=== PATIENT | male | born 1960 | race Caucasian/White ===

== ENCOUNTER → 2023-06-21 06:20 | Outpatient (REF) | payer OTHER, SELFPAY | LOC: MRI 06:20 | PROVIDERS: ATTENDING PHYSICIAN Podiatrist Foot & Ankle Surgery; FAMILY PHYSICIAN Family Medicine | DX: M72.2 Plantar fascial fibromatosis (principal) | CPT/HCPCS: 73721 ==

== ENCOUNTER → 2024-02-13 08:10 | Outpatient (REF) | payer OTHER, SELFPAY | LOC: HWRCS 08:10 | PROVIDERS: ATTENDING PHYSICIAN Internal Medicine; FAMILY PHYSICIAN Family Medicine | DX: I10 Essential (primary) hypertension (principal); I35.0 Nonrheumatic aortic (valve) stenosis | CPT/HCPCS: 93306 ==

== ENCOUNTER 2024-03-29 06:25 | Day surgery (SDC) | payer OTHER, SELFPAY ==
[2024-03-23 10:17] VITALS: BMI 28.0
[2024-03-23 10:49] LABS: % Basophils 1.3 % (0-2); % Immature Granulocytes 0.4 % (0-0.5); % Lymphocytes 28.8 % (20.5-51.1); % Monocytes 5.6 % (1.7-9.3); % Neutrophils 62.9 % (42.2-75.2); Absolute Basophils 0.1 10^3/uL (0-0.2); Absolute Eosinophils 0.1 10^3/uL (0-0.7); Absolute Monocytes 0.4 10^3/uL (0.1-0.6); Absolute Neutrophils 4.4 10^3/uL (1.4-6.5); Hematocrit 40.4 % (39.0-52.0); Hemoglobin 14.2 g/dL (13.0-18.0); Mean Corp Hgb Conc. 35.1 g/dL (33.0-37.0); Mean Corpuscular Hgb 32.1 pg (27.0-31.0); Mean Corpuscular Volume 91.2 fL (80.0-94.0); Mean Platelet Volume 11.1 fL (7.4-10.4); Nucleated Red Blood Cells % 0 % (-); Platelet Count 246 10^3/uL (130-400); Red Blood Cell Count 4.43 10^6/uL (4.70-6.10); Red Cell Dist. Width 12.2 % (11.5-14.5)
[2024-03-23 10:58] LABS: ALT (SGPT) 26 U/L (0-50); AST (SGOT) 21 U/L (17-59); Albumin 4.2 g/dl (3.5-5.0); Alkaline Phosphatase 86 U/L (38-126); Blood Urea Nitrogen 30 mg/dl (9-20); Calcium 9.3 mg/dl (8.4-10.2); Carbon Dioxide 26 mmol/L (22-30); Chloride 104 mmol/L (98-107); Estimated Creatinine Clearance 48 ml/min; Glucose 243 mg/dl (70-99); Potassium 5.2 mmol/L (3.5-5.1); Sodium 138 mmol/L (135-145); Total Bilirubin 0.9 mg/dl (0.2-1.3); Total Protein 6.8 g/dl (6.3-8.2); eGFR 52.31
--- NOTE | 2024-03-23 12:22 | HPS.HSE ---
Family Physician
-
Family Physician: Juliette Tellez MD
Chief Complaint
-
Severe aortic stenosis.
History of Present Illness
The patient is a 64 year old male presenting today for aortic stenosis. He was first noted to have mild aortic stenosis on an echocardiogram in January 2020. Subsequent echocardiograms in June and December 2022 demonstrated moderate to
severe aortic stenosis. Notably, he has always been fairly active and has continually denied any abnormal symptoms. His most recent echocardiogram in January 2024 demonstrated severe aortic stenosis, with a peak gradient of 95 mmHg and a mean of 55
mmHg. His previous mean gradient was 36 mmHg. Given the progression of his aortic stenosis, SAVR and TAVR will be considered. Before proceeding with potential SAVR or TAVR, he must undergo a right and left cardiac catheterization first. He denies
any current complaints today such as chest pain, shortness of breath, nausea, vomiting, diarrhea, lightheadedness, dizziness, cough, sore throat, or fever.
Medical History
Past Medical History
Past Medical History: Reports Other
Additional Past Medical History:
1. Severe aortic stenosis.
2. Hypertension.
3. Hyperlipidemia.
4. Septal infarct on previous EKGs; no ischemia or infarction noted on stress test 2019.
5. Questionable obstructive sleep apnea, sleep study advised.
6. Chronic kidney disease stage 3.
7. Insulin-dependent diabetes with retinopathy.
8. Colon polyps.
9. Diverticulosis.
10. Nephrolithiasis.
11. Hypothyroidism.
Past Surgical History: Reports Other (Colonoscopy x2. )
Social History
Tobacco: Non-smoker
Alcohol: None
Living: Other (He lives in a 2 story home with his girlfriend. )
Family History
Family History: Early CAD
Allergies / Home Medications
Allergy/Medication List:
Home medications:
1. Aspirin 81 mg p.o. daily.
2. Zetia 10 mg p.o. daily.
3. Novolog sliding scale with meals.
4. Lantus 32 units subcutaneous at bedtime.
5. Levothyroxine 100 mcg p.o. daily.
6. Lisinopril 20 mg p.o. daily.
7. Rosuvastatin 40 mg p.o. daily.
8. Ozempic 1.5 mg subcutaneous on Mondays.
Allergies: No known allergies.
Review of Systems
-
A 12 point ROS was completed and negative except as noted: Yes
Physical Exam
Vital Signs
Blood pressure 127/74. Heart rate 70. Respirations 18. Pulse ox 100% on room air.
Height 5 feet, 7 inches. Weight 80.9 kg. BMI 27.9.
Physical Exam
General: Well Developed, Well Nourished and No Apparent Distress
HEENT: NormoCephalic, Moist mucous membranes, Atraumatic and PERRLA
Respiratory: Clear
Cardiac: Regular Rhythm and Murmur (II/ systolic murmur at right sternal border)
GI: Soft, Non Tender and Non Distended
Musculoskeletal: Normal Gait & Station
Skin: Warm and Dry
Neuro: AO x 3 and Nonfocal/grossly intact
Laboratory Results
-
03/23/24 10:27
03/23/24 10:27
Laboratory Results
Total Bilirubin 0.9 mg/dl (0.2-1.3) 03/23/24 10:27
AST 21 U/L (17-59) 03/23/24 10:27
ALT 26 U/L (0-50) 03/23/24 10:27
Alkaline Phosphatase 86 U/L (38-126) 03/23/24 10:27
EKG 03/23/2024: Sinus rhythm with first degree AV block. Otherwise normal EKG.
Echocardiogram 02/13/2024: Normal left ventricular function with estimated ejection fraction 60 to 65%. Severe aortic stenosis with a peak gradient of 95 mmHg and a mean of 55 mmHg. When compared with the previous report, the severity of aortic
stenosis has increased. Previously moderate to severe with a mean gradient of 36 mmHg.
Nuclear stress test 01/21/2020: Normal perfusion imaging. The ejection fraction is 63%. This is a low risk study.
Impression/Plan
-
IMPRESSION/PLAN:
1. Severe aortic stenosis: The patient will undergo a right and left cardiac catheterization with Dr. Vlad Cuenca on 03/29/2024. The benefits and risks of the procedure have been explained to the patient. The patient understands these risks and
wishes to proceed. He will continue his baby Aspirin daily, up to and including the morning of his procedure. He will hold Ozempic within 1 week of his procedure.
[2024-03-29] VITALS (10 sets, daily range): BP systolic 117–137; BP diastolic 68–83; BMI 27.5
[2024-03-29 07:16] LABS: Glucose - Point of Care 64 mg/dl (70-99)
[2024-03-29] MEDS: LOW STRENGTH ASPIRIN 81 MG PO (07:36)
[2024-03-29 07:50] LABS: Glucose - Point of Care 76 mg/dl (70-99)
--- NOTE | 2024-03-29 09:07 | ITS.CL.CATH ---
Supervisor Metalizing - Catheterization
Cardiac Catheterization
Procedure Report:
CARDIAC CATHETERIZATION REPORT
Date of Procedure: 03/29/2024
Referring: John Coffey M.D., Ph.D.
Indication: Severe aortic valve stenosis.
PROCEDURE:
1. Right heart catheterization.
2. Coronary angiography.
A total of 10 minutes of procedural/moderate sedation was utilized. An independent medical or surgical instrument maker was present to assist with and help manage the patient's level of consciousness and physiologic status.
ACCESS:
1. 6 [place] right radial artery using a modified Seldinger technique under ultrasound guidance. Ultrasound image obtained.
2. 5 [place] right antecubital vein exchanged through a previously placed IV.
CATHETERS:
1. 5 [place]anian balloon wedge.
2. 5 [place] JL 3.5.
3. 5 [place] JR4.
HEMODYNAMIC DATA
Weight (kg): 79.6
AO (s/d/x mmHg): 124/71/91
LV (s/x mmHg): Not obtained.
PCWP (a/v/x mmHg):
PA (s/d/x mmHg): 06/01/14
RV (s/x mmHg): 8
RA (a/v/x mmHg):
SVC SvO2 (%): 71.7
IVC SvO2 (%): Not obtained.
RA SvO2 (%): Not obtained.
RV SvO2 (%): Not obtained.
PA SvO2 (%): 72.8
SaO2 (%): 97.3
Hbg (g/dL): 13.3
CAMILO
CO (L/min): 4.99
CI (L/min/m2): 2.61
Thermodilution
CO (L/min): Not obtained.
CI (L/min/m2): Not obtained.
TPG (mmHg): 5
PVR (To Units): 1.0
SVR (dynes*seconds*cm^-5): 1315
AVO2 Diff (Volume %): 4.43
AV gradient (x, mmHg): Not obtained.
AV area (cm2): Not obtained.
MV gradient (x, mmHg): Not obtained.
MV area (cm2): Not obtained.
LEFT VENTRICULOGRAPHY: Not performed.
AORTOGRAPHY: Not performed.
CORONARY ANGIOGRAPHY
Dominance: Right.
Left Main: Normal size, trifurcating vessel. There is no coronary artery disease.
LAD: Normal size vessel giving rise to 1 significant diagonal. There is no coronary artery disease.
Ramus: Medium to large size vessel supplying the majority of the lateral wall. There is no coronary artery disease.
Circumflex: Small size, nondominant vessel that is essentially an AV groove artery with small, diminutive obtuse marginals. There is no coronary artery disease.
RCA: Normal size, dominant vessel with a downward pointing origin. There is no coronary artery disease.
INTERVENTIONS
None.
Closure Device: Vascular band for the right radial artery, manual pressure for the right antecubital vein.
Radiation dose (mGy): 350.69
DAP (cm2.Gy): 28.5637
Fluoroscopy time (minutes): 2.5
CONCLUSIONS:
1. Right dominant circulation with no coronary artery disease.
2. Normal filling pressures (PCWP = 9 mmHg at 79.6 kg).
3. Severe/critical aortic valve stenosis by echocardiography.
RECOMMENDATIONS:
1. Expectant management after cardiac catheterization via right radial/antecubital approach.
2. Limited weight bearing on the right wrist for one week.
3. Referral to structural heart team for aortic valve replacement, likely SAVR given age.
4. No medication changes at this time.
Copy to: Jean-Pierre Greenfield M.D., John Coffey M.D., Ph.D., Juliette Tellez M.D.
Vlad Cuenca DO, FACC, FACP
[2024-03-29 09:11] LABS: Glucose - Point of Care 121 mg/dl (70-99)
[2024-03-29 09:56] LABS: Glucose - Point of Care 138 mg/dl (70-99)
[2024-03-29 11:09] LABS: Glucose - Point of Care 195 mg/dl (70-99)
== END 2024-03-29 11:25 | disposition home or self-care (01) ==
LOC: CATH 06:25
PROVIDERS: ATTENDING PHYSICIAN Internal Medicine Cardiovascular Disease; FAMILY PHYSICIAN Family Medicine; OTHER PHYSICIAN Internal Medicine
DX: I35.0 Nonrheumatic aortic (valve) stenosis (principal); I12.9 Hypertensive chronic kidney disease with stage 1 through stage 4 chronic kidney disease, or unspecified chronic kidney disease; N18.30 Chronic kidney disease, stage 3 unspecified; E11.22 Type 2 diabetes mellitus with diabetic chronic kidney disease; E78.5 Hyperlipidemia, unspecified; E03.9 Hypothyroidism, unspecified; Z79.4 Long term (current) use of insulin; Z79.85 Long-term (current) use of injectable non-insulin antidiabetic drugs; Z79.82 Long term (current) use of aspirin
CPT/HCPCS: 36415; 80053; 82962; 85025; 93005; 93456; C1894; Q9967

== ENCOUNTER → 2024-04-26 09:15 | Outpatient (REF) | payer OTHER, SELFPAY | LOC: RAD 09:15 | PROVIDERS: ATTENDING PHYSICIAN Nurse Practitioner Acute Care; FAMILY PHYSICIAN Family Medicine; OTHER PHYSICIAN Internal Medicine; REFERRING PHYSICIAN Thoracic Surgery (Cardiothoracic Vascular Surgery) | DX: I35.0 Nonrheumatic aortic (valve) stenosis (principal) | CPT/HCPCS: 75572; Q9967 ==

== ENCOUNTER 2024-06-14 04:56 | Inpatient (IN) | payer OTHER, SELFPAY ==
[2024-06-04 08:41] VITALS: BMI 27.7
[2024-06-04 09:38] LABS: % Basophils 1.8 % (0-2); % Eosinophils 1.8 % (0-6); % Immature Granulocytes 0.4 % (0-0.5); % Lymphocytes 37.4 % (20.5-51.1); % Monocytes 5.2 % (1.7-9.3); % Neutrophils 53.4 % (42.2-75.2); Absolute Basophils 0.1 10^3/uL (0-0.2); Absolute Eosinophils 0.1 10^3/uL (0-0.7); Absolute Lymphocytes 2.1 10^3/uL (1.2-3.4); Absolute Monocytes 0.3 10^3/uL (0.1-0.6); Hematocrit 38.7 % (39.0-52.0); Hemoglobin 13.7 g/dL (13.0-18.0); Mean Corp Hgb Conc. 35.4 g/dL (33.0-37.0); Mean Corpuscular Hgb 32.2 pg (27.0-31.0); Mean Corpuscular Volume 91.1 fL (80.0-94.0); Mean Platelet Volume 11.2 fL (7.4-10.4); Nucleated Red Blood Cells % 0 % (-); Platelet Count 249 10^3/uL (130-400); Red Blood Cell Count 4.25 10^6/uL (4.70-6.10); Red Cell Dist. Width 12.6 % (11.5-14.5); White Blood Cell Count 5.6 10^3/uL (4.8-10.8)
[2024-06-04 09:39] LABS: Urine Albumin 1+ (Neg - Trace); Urine Bilirubin Negative (Negative); Urine Character Clear (Clear); Urine Color Yellow; Urine Glucose Negative (Negative); Urine Ketone Negative (Negative); Urine Leukocyte Negative (Negative); Urine Nitrite Negative (Negative); Urine Occult Blood Negative (Negative); Urine Urobilinogen Negative (Neg - 1+)
[2024-06-04 09:44] LABS: INR 1.01; PT 13.6 Sec (11.4-14.6)
[2024-06-04 09:45] LABS: APTT 31.8 Sec (23.4-35.0)
[2024-06-04 10:07] LABS: Urine Red Blood Cell 0-2 /HPF (0-2); Urine Squamous Cell 0-2 /LPF (Few); Urine White Cell 0-2 /HPF (0-5)
[2024-06-04 10:09] LABS: AST (SGOT) 27 U/L (17-59); Albumin 4.1 g/dl (3.5-5.0); Alkaline Phosphatase 90 U/L (38-126); Blood Urea Nitrogen 32 mg/dl (9-20); Calcium 9.8 mg/dl (8.4-10.2); Carbon Dioxide 24 mmol/L (22-30); Chloride 106 mmol/L (98-107); Direct Bilirubin 0.2 mg/dl (0.0-0.4); Estimated Creatinine Clearance 45 ml/min; Glucose 166 mg/dl (70-99); Sodium 137 mmol/L (135-145); Total Bilirubin 0.9 mg/dl (0.2-1.3); Total Protein 6.8 g/dl (6.3-8.2); eGFR 48.41
[2024-06-04 10:19] LABS: ALT (SGPT) 44 U/L (0-50); Potassium 5.6 mmol/L (3.5-5.1)
[2024-06-04 10:35] LABS: Glycohemoglobin (HgbA1c) 7.1 % (4.0-5.6)
--- NOTE | 2024-06-04 10:37 | CM ---
Addendum entered by VELMA Shepherd 06/09/24 10:47:
Correction to below: Surgery is planned for 06/14
Original Note:
CM following for DC planning needs.
Met w/ patient and sig. other, Tanisha during PATs for planned AVR procedure.
Pt. resides w/ sig. other in a private, 2 story home. Pt. is functionally indep. w/ ADLs, mobility without the use of any assisted device.
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
Pt. has RX plan and uses [facility] in [place] for prescription needs.
Pre and post op routines reviewed.
Soap, shower instructions and Cardiac Surgery booklet provided/reviewed.
We discussed post op restrictions to include lifting, driving, flying and sternal precautions.
Reviewed post op MD appointments, Cardiac Rehab and visit from CT Transitional Care RN.
Plan for CT Surgery, 06/04.
Antic. DC plan is for home w/ CT Transitional Care RN.
CM to follow.
[2024-06-14] VITALS (15 sets, daily range): BP systolic 95–129; BP diastolic 57–70; BMI 27.2
--- NOTE | 2024-06-14 00:36 | W.PN.CT ---
Assessment / Plan
-
Assessment:
-S/P Median sternotomy/AVR (#25 Inspiris Resilia), by Dr. Greenfield, 06/14/24, pod#1
-Severe aortic stenosis (P/M: 95/55, BOWEN 0.7)
-Bicuspid aortic valve (SIEVER I)
-LVEF 60-65%
-HTN
-HLD
-T2DM with retinopathy (hgb A1C 7.1, on Insulin)
-CKD3a
-Hyperkalemia
-Nephrolithiasis
-Cholelithiasis
-Hypothyroidism
-Anemia
-Diverticulosis
-Colon polyps
-Hx of LLE laceration
-S/P dental implants
-Acute postop blood loss/Anemia (stable without blood transfusion)
-Acute postop atelectasis
-Acute postop hypovolemia with subsequent hypervolemia
Plan:
-No major issues overnight. Hemodynamically and neurologically intact
-Pt was successfully extubated yesterday @ 1350
-Was off and on Cardene gtt postop, currently only on insulin gtt per protocol
-Last CI, MVO2 , U/O since OR
-Chest tube output: 2meds , L pleural . CXR looks clear to my eyes without significant atelectasis/pleural effusion, no ptx. F/u official report
-Cont. current meds (ASA, Plavix, Crestor, Amiodarone, Lopressor, insulin gtt)
-D/C'd swan and a-line @ 0430
-Keep lopez another day to avoid urinary retention given CKD3a
-Telemetry phase tomorrow once off insulin gtt per protocol
-Diabetes education/management following given hgb A1C of 7.1
-Maintain cordis
-Encourage use of IS
-OOB into chair/Ambulate
Subjective
-
Date of Service: June 14, 2024
Objective Data
-
Lab Results
06/04/24 08:55
06/04/24 08:55
PT 13.6 Sec (11.4-14.6) 06/04/24 08:55
INR 1.01 06/04/24 08:55
APTT 31.8 Sec (23.4-35.0) 06/04/24 08:55
[2024-06-14 05:30] LABS: Blood Urea Nitrogen 28 mg/dl (9-20); Carbon Dioxide 26 mmol/L (22-30); Chloride 108 mmol/L (98-107); Estimated Creatinine Clearance 51 ml/min; Glucose 182 mg/dl (70-99); Magnesium 1.7 mg/dl (1.6-2.3); Potassium 4.7 mmol/L (3.5-5.1); Sodium 142 mmol/L (135-145); eGFR 56.83
[2024-06-14] MEDS: MAGNESIUM OXIDE 500 MG PO (05:53)
[2024-06-14] MEDS: BACTROBAN 2% OINTMENT 1 APPLIC NASAL ×2 (05:53→19:48)
[2024-06-14] MEDS: PROTONIX 40 MG PO (05:53)
[2024-06-14] MEDS: LOPRESSOR 25 MG PO (05:53)
--- NOTE | 2024-06-14 05:56 | PTCARENOTE ---
admitted pt into 2261. Full admission and med rec completed. pt confirmed 2 showers at home and NPO since midnight. pt took lisinopril yesterday. CTPA notified, will notify OR team as well. Pt clipped, washed with CHG. pre op teaching given, all
questions answered. CTPA in to do updated H and P. awaiting CVOR
[2024-06-14 07:21] LABS: ACT+ - POC 90 Seconds (82-134)
[2024-06-14 07:39] LABS: Urine Albumin 2+ (Neg - Trace); Urine Bilirubin Negative (Negative); Urine Character Clear (Clear); Urine Color Yellow; Urine Glucose Negative (Negative); Urine Ketone Negative (Negative); Urine Leukocyte Negative (Negative); Urine Nitrite Negative (Negative); Urine Occult Blood Negative (Negative); Urine Urobilinogen Negative (Neg - 1+)
[2024-06-14 08:13] LABS: Urine Amorphous Seen; Urine Red Blood Cell 0-2 /HPF (0-2); Urine Squamous Cell 0-2 /LPF (Few); Urine White Cell 0-2 /HPF (0-5)
[2024-06-14 08:27] LABS: ACT+ - POC 654 Seconds (82-134)
[2024-06-14 08:48] LABS: ACT+ - POC 577 Seconds (82-134)
[2024-06-14 08:56] LABS: B.E. - POC -2.7 mmol/L; Glucose - POC 162 mg/dl (70-99); HCO3 - POC 23 mmol/L (21-28); Hematocrit - POC 28 % PCV (42-52); Hemodilution- POC No; Hemoglobin Calculated - POC 9.6; Ionized Calcium - POC 1.16 mmol/L (1.15-1.33); Lactate - POC < 0.30 mmol/L (0.36-0.75); O2 Saturation %Calculated-POC 99.8 % (94-98); PCO2 - POC 40 mmHg (35-48); PO2 - POC 257 mmHg (83-108); Potassium - POC 4.4 mmol/L (3.5-5.1); Sodium - POC 139 mmol/L (136-145); Specimen Type - POC Arterial; pH - POC 7.36 (7.35-7.45)
--- NOTE | 2024-06-14 08:56 | CM ---
Reviewed chart. Mr. Cartagena is in the operating room today. Prior to admission he resides with his significant other in a two story home. Prior to admission he was independent with ambulation and adls. He does not have any DME in the home. He has
a prescription plan and uses [facility]. Medical work-up in progress. The discharge plan is to return home with her significant other and a home visit by the Cardiothoracic Transitional Care Nurse.
[2024-06-14 09:17] LABS: B.E. - POC 1.3 mmol/L; Glucose - POC 119 mg/dl (70-99); HCO3 - POC 26 mmol/L (21-28); Hematocrit - POC 28 % PCV (42-52); Hemodilution- POC Yes; Hemoglobin Calculated - POC 9.7; Ionized Calcium - POC 0.97 mmol/L (1.15-1.33); Lactate - POC < 0.30 mmol/L (0.36-0.75); PCO2 - POC 42 mmHg (35-48); PO2 - POC 397 mmHg (83-108); Potassium - POC 6.1 mmol/L (3.5-5.1); Sodium - POC 139 mmol/L (136-145); Specimen Type - POC Arterial
[2024-06-14 09:17] LABS: ACT+ - POC 492 Seconds (82-134)
[2024-06-14 09:43] LABS: ACT+ - POC 498 Seconds (82-134)
[2024-06-14 10:04] LABS: B.E. - POC -0.3 mmol/L; Glucose - POC 134 mg/dl (70-99); HCO3 - POC 25 mmol/L (21-28); Hematocrit - POC 28 % PCV (42-52); Hemodilution- POC Yes; Hemoglobin Calculated - POC 9.6; Ionized Calcium - POC 1.06 mmol/L (1.15-1.33); Lactate - POC < 0.30 mmol/L (0.36-0.75); O2 Saturation %Calculated-POC 99.9 % (94-98); PCO2 - POC 40 mmHg (35-48); PO2 - POC 322 mmHg (83-108); Sodium - POC 139 mmol/L (136-145); Specimen Type - POC Arterial
[2024-06-14 10:16] LABS: B.E. - POC -0.7 mmol/L; Glucose - POC 142 mg/dl (70-99); HCO3 - POC 24 mmol/L (21-28); Hematocrit - POC 27 % PCV (42-52); Hemodilution- POC Yes; Hemoglobin Calculated - POC 9.1; Ionized Calcium - POC 1.05 mmol/L (1.15-1.33); Lactate - POC 0.76 mmol/L (0.36-0.75); O2 Saturation %Calculated-POC 99.5 % (94-98); PCO2 - POC 41 mmHg (35-48); PO2 - POC 170 mmHg (83-108); Potassium - POC 6.4 mmol/L (3.5-5.1); Sodium - POC 141 mmol/L (136-145); Specimen Type - POC Arterial; pH - POC 7.38 (7.35-7.45)
[2024-06-14 10:19] LABS: ACT+ - POC 90 Seconds (82-134)
[2024-06-14 10:21] LABS: B.E. - POC -0.1 mmol/L; Glucose - POC 124 mg/dl (70-99); HCO3 - POC 24 mmol/L (21-28); Hematocrit - POC 25 % PCV (42-52); Hemodilution- POC Yes; Hemoglobin Calculated - POC 8.4; Ionized Calcium - POC 1.16 mmol/L (1.15-1.33); Lactate - POC 0.32 mmol/L (0.36-0.75); O2 Saturation %Calculated-POC 99.9 % (94-98); PCO2 - POC 36 mmHg (35-48); PO2 - POC 292 mmHg (83-108); Potassium - POC 5.5 mmol/L (3.5-5.1); Sodium - POC 140 mmol/L (136-145); Specimen Type - POC Arterial; pH - POC 7.43 (7.35-7.45)
--- NOTE | 2024-06-14 10:47 | W.CVOR.SURPR ---
CVOR Surgeon Immed Pre Op
-
I have examined this patient prior to performance of the scheduled procedure.
The patient's condition is unchanged from the time of the dictated/written History and
Physical and the patient is able to undergo the scheduled procedure.
--- NOTE | 2024-06-14 10:48 | W.IMMPOSTOP ---
Addendum entered and electronically signed by Jean-Pierre Greenfield MD 06/14/24 16:33:
[id number]
Original Note:
Surgical Immed Post Op Note
-
CARDIAC SURGERY OPERATIVE NOTE:
Preoperative Dx:
Severe aortic stenosis (P/M: 95/55, BOWEN 0.7)
Bicuspid AV (SIEVER I)
Postoperative Dx:
Same
Procedures:
1) Median sternotomy
2) AVR (#25 Inspiris Resilia)
Surgeon:
Jean-Pierre Greenfield M.D.
Assistants:
Freda Lam P.A.-C. - nurse first aid throughout
Nahun Mascorro P.A.-C. - [id number] sternotomy closure
Anesthesia:
Alexis Morales M.D. and Malou San CDkR.N.A.
Perfusion:
Marychuy Ramirez C.C.P.; XC: 68min, CPB: 82min
Findings:
Normal aorta
Bicuspid AV w/ Siever I morphology
LM and RM coronary arteries well removed from annulus and in their normal anatomic locations
Bulky leafly calcifications w/ minor circumferential annular extension
No significant subvalvular calcifications
#25 Matt Inspiris Resilia valve secured w/ 14 interrupted, pledgetted valve sutures & CorKnot
Post-JAMEEL: normal biventricular function; LVEF 65%; well-seated AVR w/o PVL/AI; mean gradient 6mmHg under GA
Normal sinus rhythm
Implants:
Matt Inspiris Resilia AVR, #25, SN: [id number]
Epicardial V-wires x 2 (sutured x 1)
CT x 3 (inferior/lateral pericardial, superior/medial pericardial, right pleural)
Sternal wires x 7
Sternal 'X' plate w/ 4 - 14mm and 4 - 12mm screws
Sternal 'Square' plate w/ 4 - 10mm screws
Complications:
None
Transfusions:
None
Condition:
73 sinus (0.3/0.3); 101/66; 32/23; CVP 20; CO/CI: 3.03/1.63 (slightly dry on echocardiography)
GTTS: precedex 0.5, insulin 1
Stable/guarded to CVICU
--- NOTE | 2024-06-14 11:26 | W.PN.UPDATE ---
Update Note
Progress Note Update
64-year-old male was electively admitted on 06/14/2024 for aortic valve replacement due to bicuspid aortic valve with severe aortic stenosis.
IV fluids:
U.O.:� 475
Blood:� none
Wires:� 2 V-wires
Infusions: no pressors, Insulin @ 1
Sedatives:� Precedex
�
NEURO: sedated, pupils +2mm B/L
RESP: #8OT @22cm> 500/60%/14/5. Lungs clear B/L. 2 mediastinal (10cc on arrival) and L pleural (0cc on arrival) chest tubes to -20cm suction. Sanguineous drainage
CV: RRR +S1, S2, no S3, no�rub, no murmur. Dermabond to median sternotomy. RIJ w/Alvord locked @ 46cm. PA 26/17; CVP 10
ABD: round, soft, no BS
EXT: no edema, +2/4 DP pulses B/L, no femoral bruit, left radial A-line intact
: Amor with clear yellow urine
�
A/P: POD #0 s/p AVR #25mm Inspiris Resilia
JAMEEL: EF�65%
- wean and extubate
- will need instruction regarding antibiotic prophylaxis for dental and invasive procedures
�
# acute surgical blood loss anemia-expected
- trend CBC
�
# T2DM (A1C 7.1)
- insulin infusion x 48h
- DM QUALITY CONTROL INDUSTRIAL ENGINEER consulted
- on Ozempic, glagrine, Aspart at home
�
# Hyperlipidemia
- resume�crestor, Zetia when taking solids
# Hypothyroidism
- resume Levothyroxine 100mcg daily when tolerating solids
[2024-06-14 11:29] LABS: Glucose - Point of Care 121 mg/dl (70-99)
[2024-06-14 11:35] LABS: B.E. -2.5 mmol/L; HCO3 22.5 mmol/L (21-28); Hematocrit 25.9 % (39.0-52.0); Hemoglobin 9.3 g/dL (13.0-18.0); Ionized Calcium 1.15 mMOL/L (1.15-1.33); O2 Saturation % 98.9 % (94-98); PCO2 39 mmHg (35-48); PO2 129 mmHg (83-108); Platelet Count 149 10^3/uL (130-400); Potassium 4.8 mMOL/L (3.5-5.1); Sodium 137 mMOL/L (136-145); pH 7.37 (7.35-7.45)
[2024-06-14 11:36] LABS: O2 Therapy vent
[2024-06-14 11:38] LABS: Mixed Venous O2 Saturation 70.9 %
[2024-06-14] MEDS: CALCIUM GLUCONATE 100 IV (11:42)
[2024-06-14] MEDS: ANCEF 10 IV ×2 (11:43)
[2024-06-14] MEDS: NSS 500 IV (11:45)
[2024-06-14] MEDS: NOVOLOG FLEXPEN SC ×3 (11:45→16:19)
[2024-06-14] MEDS: SYNTHROID PO (11:45)
[2024-06-14] MEDS: NEURONTIN PO (11:45)
[2024-06-14] MEDS: CRESTOR PO (11:45)
[2024-06-14] MEDS: ZETIA PO (11:46)
[2024-06-14 11:48] LABS: INR 1.39; PT 17.3 Sec (11.4-14.6)
[2024-06-14 11:49] LABS: APTT 35.3 Sec (23.4-35.0)
[2024-06-14 11:54] LABS: Blood Urea Nitrogen 24 mg/dl (9-20); Estimated Creatinine Clearance 60 ml/min; Glucose 114 mg/dl (70-99); Magnesium 2.3 mg/dl (1.6-2.3)
[2024-06-14 12:02] LABS: Glucose - Point of Care 122 mg/dl (70-99)
--- NOTE | 2024-06-14 12:04 | CON.INTV ---
Consultation
Consultation Request
Date/Time Consultation Requested: 06/14
Date/Time Consultation Performed: 06/14
Reason for Consultation: Critical care
Medical History
-
History of Present Illness:
History obtained from the reviewing inpatient and outpatient records. History also obtained from the girlfriend at the bedside. Patient is a 64-year-old male with severe aortic stenosis, with normal ejection fraction per outpatient echocardiogram.
Patient notes per outpatient records that he is slowly short of breath. According to girlfriend, over the past year patient has been more short of breath with simple activities although he had denied in the past. She had noticed that his exercise
tolerance has gone down. No clear history of syncope, lightheadedness or dizziness. 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 He is currently status post median sternotomy with bioprosthetic AVR.
Postoperative JAMEEL with normal EF, well-seated AVR, normal sinus rhythm. Patient with epicardial pacing wires in place. Remains on Precedex and insulin drip. We are asked to help from a critical care standpoint
.
PMH: Diabetes, hypertension, hyperlipidemia, hypothyroidism, history of colon polyps. History of severe arctic stenosis. History of abnormal EKG, normal ischemic workup. Nephrolithiasis, diverticulitis. History of dental implants
Past Medical History
Past Medical History: None (See above)
Past Surgical History: None (See above)
Social History
Tobacco: Non-smoker
Alcohol: Occasional
Drug: None
Personal: Partner
Living: Other (With girlfriend)
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
Family History
Family History: Other (Father from heart attack age 60. He was a smoker. Mother alive at age 83. Family history of drug addiction and siblings. Father was also an alcoholic)
Allergies / Home Medications
Allergies
Allergy/AdvReac Type Severity Reaction Status Date / Time
No Known Allergies Allergy Verified 06/03/24 10:14
Home Medications
�Medication �Instructions �Recorded �Confirmed �Last Taken �Type
ezetimibe 10 mg tablet 10 mg PO DAILY 03/22/24 06/14/24 06/13/24 08:00 History
insulin aspart U-100 100 unit/mL 5 sliding scale dose SC AC 03/22/24 06/14/24 06/13/24 20:00 History
(3 mL) subcutaneous pen (Novolog
FlexPen U-100 Insulin aspart)
insulin glargine 100 unit/mL (3 32 unit SC HS 03/22/24 06/14/24 06/13/24 20:00 History
mL) subcutaneous pen (Lantus
Solostar U-100 Insulin)
levothyroxine 100 mcg tablet 100 mcg PO DAILY 03/22/24 06/14/24 06/13/24 08:00 History
lisinopril 20 mg tablet 20 mg PO DAILY 03/22/24 06/14/24 06/13/24 08:00 History
rosuvastatin 40 mg tablet 40 mg PO DAILY 03/22/24 06/14/24 06/13/24 08:00 History
semaglutide 1 mg/dose (4 mg/3 mL) 1 mg SC MO 03/22/24 06/14/24 06/07/24 History
subcutaneous pen injector (Ozempic)
Review of Systems
-
All other systems: Negative unless noted
Vitals / Labs / Diagnostic Testing
Vital Signs
Temp Pulse Resp Pulse Ox
95.6 F L 79 12 97
06/14/24 12:00 06/14/24 11:25 06/14/24 12:00 06/14/24 12:00
Lab Data
06/14/24 11:24
Laboratory Results
06/14/24
11:24
PT 17.3 H
INR 1.39
APTT 35.3 H
pH 7.37
pCO2 39
pO2 129 H
HCO3 22.5
O2 Delivery Level vent
Diagnostic Testing:
Physical Exam
-
HEENT: Normocephalic, Anicteric and Other (IJ, A-line, chest tube)
Cardiovascular: S1/S2, Regular Rhythm, Murmur (n), Rub (n) and Peripheral Edema (n)
Respiratory: Wheeze (n), Rales (n), Rhonchi (n) and Non-Labored Respirations
GI: Soft and Non Distended
Neurology: Other (Sedated, intubated)
Skin: Good Color
General: Comfortable
Assessment
-
64-year-old male with history of hypertension, hyperlipidemia, diabetes, lives active lifestyle with progressive symptoms found to have severe arctic stenosis, normal LV function. He is status post bioprosthetic AVR 06/14. We are asked to help from
critical care standpoint
S/p AVR 06/14/2024
Severe aortic stenosis, normal LV function
Abnormal EKG, septal infarct
Chronic, ischemia workup negative
Postoperative anemia
Conditions present prior to admission
Hypertension/hyperlipidemia
History of diabetes
History of nephrolithiasis
Family history of coronary disease, alcoholism, drug abuse
Hypothyroidism
Plan/recommendations
At this time, patient is critically ill, intubated on volume-cycled ventilation
ABG with adequate oxygenation/ventilation
Postoperative EKG sinus rhythm with first-degree AV block
Septal infarct is noted
Prior ischemic evaluation unremarkable
Postoperative JAMEEL unremarkable
Postoperative chest x-ray without acute findings
Presently on Cardene for hemodynamics
Moving forward
Continue with management per CT surgery
Remains on volume-cycled ventilation, tidal volume 500, PEEP pressure 23, plateau pressure 18
Continue weaning process per CT surgery protocol. Anticipate extubation in the next few hours
Precedex per protocol
Hemoglobin noted. Follow. Chest tube with minimal drainage
EKG noted. First-degree AV block
Septal infarct noted.
Prior ischemic workup unremarkable. Patient well-known to cardiology, following
Follow blood sugars, remains on insulin
Patient on Ozempic as outpatient
Reviewed with critical care nursing
Will follow
TCCT 31 min
--- NOTE | 2024-06-14 12:36 | PTCARENOTE ---
Pt received from CVOR at 1120; Sedated and intubated; SR with 1st AVB on monitor; VSS; Epicardial V wire present with temporary pacemaker turned off; +2 DP and radial pulses present; Lungs diminished at bases; ETT size 8 positioned and secured at 21
cm right lip; Ventilator settings SIMV 12/500/5/5 FiO2 40%; CTx3 to -20 cm wall suction draining bloody drainage - no air leak, tidaling, or crepitus noted; Hypoactive BS; Amor catheter in place draining clear, yellow urine; Sternal incision
covered with Aquacel with scant amount of bloody drainage; Left A-line in place, Kasie Radha floated to 48 cm in RIJ Cordis - all lines zeroed and leveled; #20 PIV present in right hand; Levo, insulin, precedex, and cardene infusing - see nursing
flowsheets for further details; iCal repleted x1; see nursing documentation for further details.
CO: 5.30
CI: 2.73
SVR: 875
[2024-06-14 13:05] LABS: Glucose - Point of Care 101 mg/dl (70-99)
--- NOTE | 2024-06-14 13:23 | PTCARENOTE ---
RT in room and patient placed on CPAP trial. EPOC due at 1350
[2024-06-14 13:52] LABS: B.E. - POC -0.7 mmol/L; Blood Urea Nitrogen - POC 25 mg/dl (3-120); Chloride - POC 111 mmol/L (96-111); Creatinine - POC 1.61 mg/dl (0.3-1.0); Glucose - POC 112 mg/dl (70-99); HCO3 - POC 25 mmol/L (21-28); Hematocrit - POC 28 % PCV (42-52); Hemodilution- POC No; Hemoglobin Calculated - POC 9.5; Lactate - POC 0.84 mmol/L (0.36-0.75); O2 Saturation %Calculated-POC 97.1 % (94-98); PCO2 - POC 42 mmHg (35-48); PO2 - POC 94 mmHg (83-108); Potassium - POC 4.2 mmol/L (3.5-5.1); Sodium - POC 144 mmol/L (136-145); Specimen Type - POC Arterial; pH - POC 7.38 (7.35-7.45)
--- NOTE | 2024-06-14 13:55 | PTCARENOTE ---
EPOC ABG reviewed with DAKSHA Strickland; RT at bedside; Patient extubated at 1350 and placed on 6L NC; IS 500 ml
--- NOTE | 2024-06-14 13:56 | RESPNOTE ---
Respiratory: patient extubated @ 1350 without incident. No stridor/wheeze.
[2024-06-14 14:01] LABS: Glucose - Point of Care 116 mg/dl (70-99)
--- NOTE | 2024-06-14 14:43 | W.PN.CD ---
Addendum entered and electronically signed by John Coffey MD 06/14/24 16:10:
64 yo male with PMH of aortic stenosis, HTN, CKD3a, DM is admitted following bio-AVR. He has been extubated. Exam with RRR, no murmurs, +rub. Tele: NSR. EKG: NSR. JAMEEL: EF 65%.
Weaning drips. Plan for ASA, metoprolol. Trend tele.
Original Note:
Today's Communication / Plan
-
Follow telemetry
Postoperative care per CT surgery
Impression / Plan
-
I/P: 64M with insulin-dependent diabetes mellitus, hypertension, dyslipidemia, and severe aortic stenosis who presents for AVR
Outpatient manager digital: Dr. Coffey
Severe arctic stenosis s/p AVR (#25 Inspiris Resilia)
-Operative findings: Bicuspid with bulky leaf calcifications
-Post JAMEEL LVEF 65% with well-seated AVR and MG of 6 mmHg
-EKG stable
-Will need instructions regarding prophylactic antibiotic therapy in the postoperative period
Hypertension, follow the postoperative setting
CKD3a
HLD, on rosuvastatin
Type 2 diabetes mellitus requiring insulin, HgbA1c 7.1%
SUBJECTIVE:
Operative report reviewed. Drowsy but denies pain.
Physical Exam
Vital Signs/Labs
Vital Signs
Temp Pulse Resp BP Pulse Ox
98.0 F 88 19 109/61 99
06/14/24 14:05 06/14/24 14:15 06/14/24 14:15 06/14/24 14:00 06/14/24 14:15
06/13/24 06/14/24 06/15/24
06:59 06:59 06:59
Actual Weight 78.7 kg
06/14/24 11:24
PT 17.3 Sec (11.4-14.6) H 06/14/24 11:24
INR 1.39 06/14/24 11:24
APTT 35.3 Sec (23.4-35.0) H 06/14/24 11:24
Magnesium 2.3 mg/dl (1.6-2.3) 06/14/24 11:24
Physical Exam
Constitutional: No acute distress and Comfortable
EENT: Anicteric and Moist mucous membranes
Cardiovascular: Rhythm & rate is regular, S1S2 is normal and Rub present
Respiratory: Respiratory effort normal and Lungs clear to auscul.
GI: Soft, Distention absent, Flat, Non tender and Normal bowel sounds
Neuro/Psych: AO x 3
Other: Skin (warm and dry)
Data Reviewed
-
Date of Service: June 14, 2024
EKG: Report Reviewed by me
Labs: Labs Reviewed by me
Old Records: Reviewed
[2024-06-14] MEDS: TYLENOL PO (15:14)
[2024-06-14] MEDS: LOW STRENGTH ASPIRIN 81 MG PO (15:14)
--- NOTE | 2024-06-14 15:14 | PN.DE.MGMTRT ---
Insulin Management
- -
06/14/2024: Diabetes Management Consult
64 year old male with PMH: HTN, HLD, T2DM, hypothyroidism, history of colon polyps, Nephrolithiasis, diverticulitis and Severe w/ NL EF. Per outpatient records, pt was noted for progressive SOB over the past year. Patient was getting more short
of breath with simple activities and that his exercise tolerance had gone down. 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
He is currently s/p median sternotomy with bioprosthetic AVR.
He is intubated and sedated on Precedex, unable to discuss diabetes care plan. No family at bedside. Hx obtained from chart review and ICU team at bedside. Per records, pt was taking NovoLog 5 units AC, Lantus 32 units @ HS and Ozempic Q Mondays
prior to admission. A1C 7.1%, Cr 1.2, eGFR >60
Pt was initiated on glycemic protocol, plan to continue glucose management with glycemic protocol x48 post-op
Will cont to follow and assist to transition back to his outpatient regimen when medically stable.
Diabetes History
- -
Type of Diabetes: 2 requiring insulin
Pre-Admission Diabetes Regimen
06/14/24 06/14/24
05:05 11:24
Creatinine 1.4 H 1.2
Lab Results
Hemoglobin A1c 7.1 % (4.0-5.6) H 06/04/24 08:55
Insulin Pump Settings
IP Diabetes Regimen
06/14/24 06/14/24 06/14/24
05:05 11:24 11:25
Glucose 182 H 114 H
POC Glucose 121 H
06/14/24 06/14/24 06/14/24
11:59 13:03 13:52
Glucose
POC Glucose 122 H 101 H 116 H
Meal type: Lunch
Patient Education
[2024-06-14 15:15] LABS: Glucose - Point of Care 83 mg/dl (70-99)
[2024-06-14 15:19] LABS: Hematocrit 28.4 % (39.0-52.0); Hemoglobin 10.3 g/dL (13.0-18.0); Platelet Count 200 10^3/uL (130-400)
[2024-06-14 16:06] LABS: Glucose - Point of Care 92 mg/dl (70-99)
[2024-06-14] MEDS: NEURONTIN 100 MG PO ×2 (16:59→20:40)
[2024-06-14] MEDS: PACERONE 200 MG PO ×2 (16:59→20:40)
[2024-06-14] MEDS: ANCEF 5 IV (17:00)
[2024-06-14] MEDS: DILAUDID 0.25 MG IV ×2 (17:29→23:37)
--- NOTE | 2024-06-14 17:30 | PTCARENOTE ---
Patient complaining of 4/10 upper back discomfort - PRN IV Dilaudid given accordingly; Patient readjusted in bed; Patient remains off levo and cardene gtts at this time
[2024-06-14 18:04] LABS: Glucose - Point of Care 106 mg/dl (70-99)
[2024-06-14] MEDS: SENOKOT-S 1 TABLET PO (19:48)
[2024-06-14 20:04] LABS: Glucose - Point of Care 93 mg/dl (70-99)
[2024-06-14] MEDS: ROXICODONE 5 MG PO (20:40)
[2024-06-14] MEDS: TYLENOL 1000 MG PO (20:40)
--- NOTE | 2024-06-14 21:14 | PTCARENOTE ---
Patient complaining 6/10 sternal pain - PRN PO Oxycodone given accordingly; Patient resting comfortably in bed at this time
[2024-06-14 22:06] LABS: Glucose - Point of Care 101 mg/dl (70-99)
--- NOTE | 2024-06-14 23:45 | PTCARENOTE ---
assumed care of pt from previous RN. pt oriented x4, drowsy. bedrest s/p CABG. R IJ Cordis w/ swan floated to 48 cm. L radial a-line. all lines leveled, zeroed, flushed. SR on tele-monitor. temp epicardial v-wires, plugged into pulse generator,
pulse generator off. CT x3 (mediastinal x2, R pleural) to -20cm wall suction, draining sanguineous drainage. no air leaks noted. abd s/n, hypoactive BS. tolerating sips of water w/ PO meds. lopez catheter draining clear, yellow urine. MSI w/
anti-bacterial dressing, CDI. PIV intact. see worklist for complete nursing assessment, interventions, VS, and I&Os.
[2024-06-14 23:48] LABS: Glucose - Point of Care 113 mg/dl (70-99)
[2024-06-15] VITALS (27 sets, daily range): BP systolic 103–139; BP diastolic 54–72; PULSE 81; O2SAT 98; BMI 27.8
--- NOTE | 2024-06-15 00:51 | W.PN.CT ---
Today's Communication / Plan
-
Plan:
-No major issues overnight. Hemodynamically and neurologically intact
-Pt was successfully extubated yesterday @ 1350
-Was off and on Cardene gtt postop, currently only on insulin gtt per protocol
-Last CI 2.93, MVO2 71.3%, U/O since OR 905 mL
-Current rhythm is NSR @ 82 bpm
-Chest tube output: 2meds 120/305, R pleural 35/60. CXR looks clear to my eyes without significant atelectasis/pleural effusion, no ptx. F/u official report
-Cont. current meds (ASA, Plavix, Crestor, Amiodarone, Lopressor, insulin gtt)
-D/C'd swan and a-line @ 0400
-Keep lopez another day to avoid urinary retention given CKD3a
-Telemetry phase tomorrow once off insulin gtt per protocol
-Diabetes education/management following given hgb A1C of 7.1
-Maintain cordis
-Encourage use of IS
-OOB into chair/Ambulate
Assessment / Plan
-
Assessment:
-S/P Median sternotomy/AVR (#25 Inspiris Resilia), by Dr. Greenfield, 06/14/24, pod#1
-Severe aortic stenosis (P/M: 95/55, BOWEN 0.7)
-Bicuspid aortic valve (SIEVER I)
-LVEF 60-65%
-HTN
-HLD
-T2DM with retinopathy (hgb A1C 7.1, on Insulin)
-CKD3a
-Hyperkalemia
-Nephrolithiasis
-Cholelithiasis
-Hypothyroidism
-Anemia
-Diverticulosis
-Colon polyps
-Hx of LLE laceration
-S/P dental implants
-Acute postop blood loss/Anemia (stable without blood transfusion)
-Acute postop atelectasis
-Acute postop hypovolemia with subsequent hypervolemia
-Acute postop probable pericarditis per EKG
Discussed patient care with: Cardiology, Nursing, Respiratory Therapy, Pharmacy and Care Team
Subjective
Procedure
S/P Median sternotomy/AVR (#25 [place] Devante), by Dr. Greenfield, 06/14/24
-
Date of Service: June 15, 2024
Pt c/o incisional pain, otherwise feels well
Objective Data
-
PT 17.3 Sec (11.4-14.6) H 06/14/24 11:24
INR 1.39 06/14/24 11:24
APTT 35.3 Sec (23.4-35.0) H 06/14/24 11:24
Vital Signs
Vital Signs
Temp Pulse Resp BP Pulse Ox
98.9 F 90 16 103/67 98
06/15/24 00:00 06/15/24 00:00 06/15/24 00:00 06/15/24 00:00 06/15/24 00:00
CT Intake/Output/Weight
06/14/24 06/14/24 06/15/24
06:59 18:59 06:59
Intake Total 560.9 / 719.7 158.8 / 719.7
Output Total 785 / 1065 280 / 1065
Balance -224.1 / -345.3 -121.2 / -345.3
SaO2: 98 (2L)
Physical Exam
-
General: Awake, Oriented and AOx3
Cardiovascular: Regular rate & rhythm, No Murmurs, No Rub and No Gallop
Respiratory: Decreased Breath Sounds (at bases, otherwise clear)
Sternum: Stable
Incision: Clean, Dry, Intact and Dressing Intact
Extremities: Other (+trace edema)
Data Reviewed
-
Lab Results: Results Reviewed
Medications: Active Meds Reviewed
Chest X-Ray: Report Reviewed and Image Reviewed
ECG: Report Reviewed and Image Reviewed
[2024-06-15] MEDS: ANCEF 5 IV ×2 (01:56→10:37)
[2024-06-15] MEDS: ROXICODONE 5 MG PO ×3 (01:56→18:06)
[2024-06-15 02:12] LABS: Glucose - Point of Care 99 mg/dl (70-99)
[2024-06-15 02:17] LABS: Mixed Venous O2 Saturation 71.3 %
[2024-06-15 02:18] LABS: Hematocrit 27.2 % (39.0-52.0); Hemoglobin 9.8 g/dL (13.0-18.0); Mean Corpuscular Volume 88.9 fL (80.0-94.0); Platelet Count 186 10^3/uL (130-400); Red Blood Cell Count 3.06 10^6/uL (4.70-6.10); Red Cell Dist. Width 12.6 % (11.5-14.5); White Blood Cell Count 14.6 10^3/uL (4.8-10.8)
[2024-06-15 02:47] LABS: Blood Urea Nitrogen 29 mg/dl (9-20); Calcium 8.8 mg/dl (8.4-10.2); Carbon Dioxide 21 mmol/L (22-30); Chloride 112 mmol/L (98-107); Estimated Creatinine Clearance 48 ml/min; Glucose 97 mg/dl (70-99); Magnesium 1.9 mg/dl (1.6-2.3); Potassium 4.5 mmol/L (3.5-5.1); Sodium 142 mmol/L (135-145); eGFR 52.31
--- NOTE | 2024-06-15 04:00 | PTCARENOTE ---
VSS. orders to de-line from CT PA. lopez maintained for POD #2. EKG completed. CT drainage WNL.
[2024-06-15 04:14] LABS: Glucose - Point of Care 100 mg/dl (70-99)
[2024-06-15] MEDS: TYLENOL 1000 MG PO ×3 (05:52→21:26)
[2024-06-15] MEDS: SYNTHROID 100 MCG PO (05:52)
[2024-06-15 06:02] LABS: Glucose - Point of Care 92 mg/dl (70-99)
--- NOTE | 2024-06-15 07:14 | PTCARENOTE ---
Pt received from outgoing Rn, pt in chair aaox4, MS /, NSR, RA, pain under controlled, vss, CT x3, Cordis, PIV, Insulin gtt, lopez, clear liquid diet, plan for ambulation today.
--- NOTE | 2024-06-15 07:51 | W.PN.INTV ---
Today's Communication / Plan
Recommendations
Pain control, out of bed to chair
Insulin drip continues, eventual transition to subcutaneous regimen 4/2
Cardene drip intermittently required
Follow hemoglobin
Once transferred to telemetry, we will sign off. Please call with questions
Assessment
-
64-year-old male with history of hypertension, hyperlipidemia, diabetes, lives active lifestyle with progressive symptoms found to have severe arctic stenosis, normal LV function. He is status post bioprosthetic AVR 06/14. We are asked to help from
critical care standpoint
S/p AVR 06/14/2024
Severe aortic stenosis, normal LV function
Abnormal EKG, septal infarct
Chronic, ischemia workup negative
Postoperative anemia
Conditions present prior to admission
Hypertension/hyperlipidemia
History of diabetes
History of nephrolithiasis
Family history of coronary disease, alcoholism, drug abuse
Hypothyroidism
Plan/recommendations
At this time, patient is critically ill, but stable/improving
Extubated without difficulty
CXR/04/10 without acute issues, chest tube in place. Chest tube drainage minimal
Postoperative anemia, hemoglobin stable at 9.8
Moving forward
Continue with management per CT surgery
Incentive spirometry, pain control
Continue to follow hemodynamics
Cardene drip noted intermittently
Hemoglobin noted. Follow. Chest tube with minimal drainage
EKG noted. First-degree AV block
Septal infarct noted.
Prior ischemic workup unremarkable. Patient well-known to cardiology, following
Follow blood sugars, remains on insulin drip
Patient on Ozempic as outpatient
Diabetes CYLINDER BLOCK MECHANIC following
Glycemic protocol continues, eventual transition to subcutaneous insulin 4/2
Once glycemic protocol discontinued, patient transferred to telemetry, we will sign off
Please call with questions
Subjective Dataa
Subjective Data
Date of Service:
Date of Service: June 15, 2024
Subjective:
Patient is without symptoms. Had mild nausea after drinking broth but otherwise denies significant shortness of breath, lightheadedness, nausea. Pain is controlled. Significant other at bedside. Patient sitting in chair appears comfortable
Objective Data
Data Reviewed
Vital Signs / I&O / Oxygen:
Vital Signs
Temp Pulse Resp BP Pulse Ox
99.1 F 79 20 117/54 96
06/15/24 03:00 06/15/24 07:00 06/15/24 06:00 06/15/24 07:00 06/15/24 07:31
Intake and Output
06/14/24 06/15/24 06/16/24
06:59 06:59 06:59
Intake Total 876.8 / 887.4 10.6 / 10.6
Output Total 1310 / 1390 80 / 80
Balance -433.2 / -502.6 -69.4 / -69.4
SaO2 [CPAP/PSV] 98
SaO2 [SIMV] 97
SaO2 96
Nasal Cannula flow liters per 2
minute
Physical Exam
General: Comfortable and Other (Right IJ, chest tube, A-line)
HEENT: Normocephalic and Anicteric
Cardiovascular: S1-S2, Regular Rhythm, Murmur (n) and Rub (n)
Respiratory: Wheeze (n), Crackles (n), Rhonchi (n), Non-Labored Respirations and Other (Mild splinting)
GI: Soft, Non Distended and Non Tender
Neurology: Awake, Alert and No Motor Deficits (Moves all extremities)
Skin: Cyanosis (n), Jaundice (n) and Rash (n)
Labs/Micro/Reports
Lab Data
06/15/24 02:04
06/15/24 02:04
Laboratory Results
06/14/24
11:24
PT 17.3 H
INR 1.39
APTT 35.3 H
pH 7.37
pCO2 39
pO2 129 H
HCO3 22.5
O2 Delivery Level vent
--- NOTE | 2024-06-15 08:30 | PN.DE.MGMTRT ---
Insulin Management
- -
06/15/2024: Diabetes Management Consult Follow up
Patient admitted 06/14 for OR for AVR. PMH: HTN, HLD, T2DM, hypothyroidism, history of colon polyps, Nephrolithiasis, diverticulitis and Severe w/ NL EF. Per outpatient records, pt was noted for progressive SOB over the past year. Patient was
getting more short of breath with simple activities and that his exercise tolerance had gone down. 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 Prior to admission was taking NovoLog 5 units AC, Lantus 32 units @
HS and Ozempic Q Mondays prior to admission. A1C 7.1%, Cr 1.2, eGFR >60
POD 1 s/p AVR, oob, alert and oriented able to discuss diabetes plan of care. Patient states he has had diabetes 25 years and is managed by primary doctor. Requests information for numerical control machine tool operator, recommended [facility] and Dr. dominique
Mushtaq.
Will continue glycemic protocol today, Glucose range 92 to 116 requiring .6 to 2.3 units of insulin per hours. Will evaluate in AM 4/2 for readiness to transition to subcutaneous insulin.
Discussed with nurse.
Will follow
Diabetes History
- -
Type of Diabetes: 2 requiring insulin
Pre-Admission Diabetes Regimen
06/14/24 06/15/24
11:24 02:04
Creatinine 1.2 1.5 H
Lab Results
Hemoglobin A1c 7.1 % (4.0-5.6) H 06/04/24 08:55
Insulin Pump Settings
IP Diabetes Regimen
06/14/24 06/14/24 06/14/24
11:24 11:25 11:59
Glucose 114 H
POC Glucose 121 H 122 H
06/14/24 06/14/24 06/14/24
13:03 13:52 15:08
Glucose
POC Glucose 101 H 116 H 83
06/14/24 06/14/24 06/14/24
16:04 18:02 20:02
Glucose
POC Glucose 92 106 H 93
06/14/24 06/14/24 06/15/24
22:05 23:47 02:04
Glucose 97
POC Glucose 101 H 113 H 99
06/15/24 06/15/24
04:11 05:55
Glucose
POC Glucose 100 H 92
Meal type: Breakfast
Meal type: Lunch
Amount consumed: 50%
Patient Education
--- NOTE | 2024-06-15 08:35 | W.PN.CD ---
Today's Communication / Plan
-
trend tele
ASA, statin
Impression / Plan
-
I64M with insulin-dependent diabetes mellitus, hypertension, dyslipidemia, and severe aortic stenosis admitted s/p bio-AVR
Outpatient feed inspection supervisor: Dr. Coffey
Severe arctic stenosis s/p AVR (#25 Inspiris Devante) 06/14
-Operative findings: Bicuspid with bulky leaf calcifications
-Post JAMEEL LVEF 65% with well-seated AVR and MG of 6 mmHg
-tele: sinus
-cont ASA
Abnormal EKG
-pericarditis pattern, but no chest pain
-monitor
Hypertension: assess to resume home lisinopril as he recovers from OR
CKD3a
HLD, on rosuvastatin, zetia
Type 2 diabetes mellitus requiring insulin, HgbA1c 7.1%
Physical Exam
Vital Signs/Labs
Vital Signs
Temp Pulse Resp BP Pulse Ox
99.1 F 79 20 117/54 96
06/15/24 03:00 06/15/24 07:00 06/15/24 06:00 06/15/24 07:00 06/15/24 07:31
06/14/24 06/15/24 06/16/24
06:59 06:59 06:59
Actual Weight 78.7 kg 80.5 kg
06/15/24 02:04
06/15/24 02:04
PT 17.3 Sec (11.4-14.6) H 06/14/24 11:24
INR 1.39 06/14/24 11:24
APTT 35.3 Sec (23.4-35.0) H 06/14/24 11:24
Magnesium 1.9 mg/dl (1.6-2.3) 06/15/24 02:04
Physical Exam
Constitutional: No acute distress and Comfortable
EENT: Moist mucous membranes
Cardiovascular: Rhythm & rate is regular, Pedal edema is absent, JVD pressure is normal and Systolic murmur absent
Respiratory: Respiratory effort normal and Lungs clear to auscul.
Neuro/Psych: AO x 3
Data Reviewed
-
Date of Service: June 15, 2024
EKG: Other (Tele: NSR)
Labs: Labs Reviewed by me
[2024-06-15 08:45] LABS: Glucose - Point of Care 119 mg/dl (70-99)
[2024-06-15] MEDS: SENOKOT-S 1 TABLET PO ×2 (08:47→21:25)
[2024-06-15] MEDS: LOPRESSOR 12.5 MG PO (08:47)
[2024-06-15] MEDS: FEOSOL 325 MG PO (08:47)
[2024-06-15] MEDS: ZETIA 10 MG PO (08:47)
[2024-06-15] MEDS: NOVOLOG FLEXPEN SC ×3 (08:47→16:18)
[2024-06-15] MEDS: MAGNESIUM OXIDE 500 MG PO ×2 (08:47→21:25)
[2024-06-15] MEDS: NEURONTIN 100 MG PO ×3 (08:47→21:26)
[2024-06-15] MEDS: FLEXERIL 5 MG PO (08:48)
[2024-06-15] MEDS: PACERONE 200 MG PO ×2 (08:48→16:18)
[2024-06-15] MEDS: PROTONIX 40 MG PO (08:48)
[2024-06-15] MEDS: VITAMIN C 500 MG PO (08:48)
[2024-06-15] MEDS: LOW STRENGTH ASPIRIN 81 MG PO (08:48)
[2024-06-15] MEDS: CRESTOR 40 MG PO (08:48)
[2024-06-15] MEDS: BACTROBAN 2% OINTMENT 1 APPLIC NASAL ×2 (08:49→21:24)
[2024-06-15 10:37] LABS: Glucose - Point of Care 137 mg/dl (70-99)
[2024-06-15] MEDS: NSS IV (10:38)
[2024-06-15 12:21] LABS: Glucose - Point of Care 99 mg/dl (70-99)
--- NOTE | 2024-06-15 12:33 | PTCARENOTE ---
Pt reassessment unchanged, nsr, ra, vss, rt ij cordis, insulin gtt, ct x3, lopez, appetite poor, adequate fluid intake.
[2024-06-15 14:29] LABS: Glucose - Point of Care 104 mg/dl (70-99)
--- NOTE | 2024-06-15 15:08 | PTCARENOTE ---
pt reassessment unchanged from previous, keep all ct and lopez for today. Ambulated with RN outside the [place] with no medical equipment assistance, standby assist. Insulin gtt till tomorrow night then dc post lantus administration.
--- NOTE | 2024-06-15 15:10 | CM ---
Reviewed chart. Met with Mr. Cartagena to review discharge plans. He states he is feeling tired today. He states prior to admission he has a he resides with his significant other in a two story home. He states he has a full flight of steps to get
to bedroom/full bathroom. He states he has a powder room on the first floor. He states prior to admission he was independent with ambulation and adls. He states he does not have any DME in the home. He states he has a prescription plan and uses
[facility]. Medical work-up in progress. The discharge plan is to return home with his significant other and a home visit by the Transitional Care Nurse when medially stable.
--- NOTE | 2024-06-15 15:42 | W.PN.ANS.POP ---
Anesthesia Post Operative
- Anesthesia Post Op Note
Vital Signs Stable-See Nursing Note: Yes
Airway Patent: Yes
Adequate Pain Control: Yes
Change in Mental Status: No
Current Postoperative Nausea & Vomiting: No
Anesthesia Complications: No
General Anesthetic Recall: No
Unplanned Admission: No
Post Op Hydration Adequate: Yes
[2024-06-15 16:21] LABS: Glucose - Point of Care 162 mg/dl (70-99)
[2024-06-15 18:08] LABS: Glucose - Point of Care 149 mg/dl (70-99)
--- NOTE | 2024-06-15 20:15 | PTCARENOTE ---
Report received from KENNA Cox. Pt up in chair. Sleeping, easily arousable to voice. Follows commands x 4.Oriented mx 4. Pt assessed and helped back to bed with 2 RN assist. BBS present. More decreased to L base than R. Sats on room air in bed are
92%, Sats on 1L/NC are 96-98%. CT x 3, all to -20 cm suction. Audible heart tones. Pt in SR. BP 120-130's systolic. V wire present, attached to temp PM. PM off for now. For pulse and wound assessments, see flowsheets. Scheduled meds given, including
metoprolool 25 mg. (increased dose). For pulse and wound assessments, see flowsheets. Belly soft, nontender. Hypoactive bs x 4. Poor appetite. Glycemic protocol maintained. Amor urinary catheter draining clear, yellow urine. Outputs monitored q1hr.
Pt received Roxicodone 5 mg ~ 1800. C/O mild sternal pain for now. Ongoing plan of care.
[2024-06-15 20:48] LABS: Glucose - Point of Care 123 mg/dl (70-99)
[2024-06-15] MEDS: LOPRESSOR 25 MG PO (21:25)
[2024-06-15 22:20] LABS: Glucose - Point of Care 140 mg/dl (70-99)
[2024-06-15] MEDS: PACERONE 400 MG PO (22:21)
--- NOTE | 2024-06-15 22:40 | PTCARENOTE ---
Scheduled meds given. Amiodarone 400 mg po given per order. Pt given CHG bath. CT and pacing wire dressing done per CVICU protocol. Q 1hr VS while pt on glycemic protocol.
[2024-06-16] VITALS (20 sets, daily range): BP systolic 107–150; BP diastolic 60–92; PULSE 79–85; O2SAT 95–98; BMI 27.9
[2024-06-16] MEDS: NOVOLIN R INSULIN INFUSION 100 IV (00:03)
[2024-06-16 00:16] LABS: Glucose - Point of Care 135 mg/dl (70-99)
[2024-06-16 01:18] LABS: Glucose - Point of Care 104 mg/dl (70-99)
[2024-06-16 02:24] LABS: Glucose - Point of Care 101 mg/dl (70-99)
[2024-06-16] MEDS: ROXICODONE 5 MG PO ×2 (02:36→21:10)
--- NOTE | 2024-06-16 02:39 | PTCARENOTE ---
Roxicodone 5 mg po given for moderate c/o sternal CP. Glycemic protocol maintained. Accuchecks q1hr. Pt in SR. Sats on 1L/NC/O2 are 98%.
--- NOTE | 2024-06-16 04:21 | PTCARENOTE ---
Labs drawn and sent. Remains in SR. Sats on 1L/NC are 98%. States pain is better controlled after Roxicodone 5 mg at 0236. Glycemic protocol maintained.
[2024-06-16 04:26] LABS: Glucose - Point of Care 108 mg/dl (70-99)
--- NOTE | 2024-06-16 04:44 | W.PN.CT ---
Today's Communication / Plan
-
Plan:
-No major issues overnight. Hemodynamically and neurologically intact
-On insulin gtt per protocol, otherwise off all drips
-Tolerating increased Lopressor to 25 mg BID
-Current rhythm is NSR @ 82 bpm
-Consider D/C of chest tubes: 2meds 80/155, R pleural 20/180. CXR looks clear to my eyes without significant atelectasis/pleural effusion, no ptx. F/u official report
-Cont. current meds (ASA, Plavix, Crestor, Amiodarone, Lopressor, insulin gtt)
-D/C lopez catheter
-Telemetry phase today once off insulin gtt per protocol
-Diabetes education/management following given hgb A1C of 7.1
-Maintain cordis another day
-Encourage use of IS
-OOB into chair/Ambulate
-Home in 1-2 days
Assessment / Plan
-
Assessment:
-S/P Median sternotomy/AVR (#25 Inspiris Resilia), by Dr. Greenfield, 06/14/24, pod#2
-Severe aortic stenosis (P/M: 95/55, BOWEN 0.7)
-Bicuspid aortic valve (SIEVER I)
-LVEF 60-65%
-HTN
-HLD
-T2DM with retinopathy (hgb A1C 7.1, on Insulin)
-CKD3a
-Hyperkalemia
-Nephrolithiasis
-Cholelithiasis
-Hypothyroidism
-Anemia
-Diverticulosis
-Colon polyps
-Hx of LLE laceration
-S/P dental implants
-Acute postop blood loss/Anemia (stable without blood transfusion)
-Acute postop atelectasis
-Acute postop hypovolemia with subsequent hypervolemia
-Acute postop probable pericarditis per EKG
Discussed patient care with: Cardiology, Nursing, Respiratory Therapy, Pharmacy and Care Team
Subjective
Procedure
S/P Median sternotomy/AVR (#25 Inspiris [place]), by Dr. Greenfield, 06/14/24
-
Date of Service: June 16, 2024
Pt c/o mild incisional pain, otherwise feels well
Objective Data
-
PT 17.3 Sec (11.4-14.6) H 06/14/24 11:24
INR 1.39 06/14/24 11:24
APTT 35.3 Sec (23.4-35.0) H 06/14/24 11:24
Vital Signs
Vital Signs
Temp Pulse Resp BP Pulse Ox
98.3 F 81 15 138/67 97
06/16/24 04:00 06/16/24 04:00 06/16/24 01:00 06/16/24 04:00 06/16/24 04:00
CT Intake/Output/Weight
06/15/24 06/15/24 06/16/24
06:59 18:59 06:59
Intake Total 315.9 / 887.4 775.8 / 914.3 138.5 / 914.3
Output Total 525 / 1390 705 / 1335 630 / 1335
Balance -209.1 / -502.6 70.8 / -420.7 -491.5 / -420.7
SaO2: 97 (1L)
Physical Exam
-
General: Awake, Oriented and AOx3
Cardiovascular: Regular rate & rhythm, No Murmurs and No Gallop
Respiratory: Decreased Breath Sounds (at bases, otherwise clear)
Sternum: Stable
Incision: Clean, Dry, Intact and Dressing Intact
Extremities: Other (+trace edema)
Data Reviewed
-
Lab Results: Results Reviewed
Medications: Active Meds Reviewed
Chest X-Ray: Report Reviewed and Image Reviewed
ECG: Report Reviewed and Image Reviewed
[2024-06-16 04:54] LABS: Hematocrit 26.8 % (39.0-52.0); Hemoglobin 9.4 g/dL (13.0-18.0); Mean Corp Hgb Conc. 35.1 g/dL (33.0-37.0); Mean Corpuscular Hgb 32.6 pg (27.0-31.0); Mean Corpuscular Volume 93.1 fL (80.0-94.0); Mean Platelet Volume 11.7 fL (7.4-10.4); Platelet Count 166 10^3/uL (130-400); Red Blood Cell Count 2.88 10^6/uL (4.70-6.10); Red Cell Dist. Width 12.6 % (11.5-14.5); White Blood Cell Count 14.3 10^3/uL (4.8-10.8)
[2024-06-16 05:03] LABS: Glucose - Point of Care 106 mg/dl (70-99)
[2024-06-16 05:12] LABS: Blood Urea Nitrogen 37 mg/dl (9-20); Calcium 8.6 mg/dl (8.4-10.2); Carbon Dioxide 27 mmol/L (22-30); Chloride 109 mmol/L (98-107); Estimated Creatinine Clearance 51 ml/min; Glucose 100 mg/dl (70-99); Magnesium 1.9 mg/dl (1.6-2.3); Potassium 4.6 mmol/L (3.5-5.1); Sodium 139 mmol/L (135-145); eGFR 56.83
[2024-06-16] MEDS: SYNTHROID 100 MCG PO (06:14)
[2024-06-16] MEDS: TYLENOL 1000 MG PO ×3 (06:14→21:09)
[2024-06-16 06:31] LABS: Glucose - Point of Care 77 mg/dl (70-99)
[2024-06-16 07:30] LABS: Glucose - Point of Care 138 mg/dl (70-99)
--- NOTE | 2024-06-16 07:31 | PTCARENOTE ---
Pt helped to standing, weighed, then to recliner chair this am with 2 RNs. No c/o lightheadedness or dizziness. Glucose 77. Insulin gtt down to 0.1 units/hr. Asx. Repeat glucose in 1 hour was 138. Pt in SR. Sats 97% on room air in chair. Report to
Kimberly RN. Walking rounds done.
--- NOTE | 2024-06-16 07:53 | W.PN.INTV ---
Today's Communication / Plan
Recommendations
Continue with supportive care
Pain control, incentive spirometry, ambulate
Remains on insulin drip, plan to transition to subcutaneous regimen this p.m.
Will be transferred to telemetry later p.m. We will sign off. Please call with questions
Assessment
-
64-year-old male with history of hypertension, hyperlipidemia, diabetes, lives active lifestyle with progressive symptoms found to have severe arctic stenosis, normal LV function. He is status post bioprosthetic AVR 06/14. We are asked to help from
critical care standpoint
S/p AVR 06/14/2024
Severe aortic stenosis, normal LV function
Abnormal EKG, septal infarct
Chronic, ischemia workup negative
Postoperative anemia
Conditions present prior to admission
Hypertension/hyperlipidemia
History of diabetes
History of nephrolithiasis
Family history of coronary disease, alcoholism, drug abuse
Hypothyroidism
Plan/recommendations
At this time, patient appears to be doing well
Remains on insulin drip
Ambulating without difficulty
Chest x-ray without acute findings
Hemoglobin stable at 9.4
Moving forward
Continue with management per CT surgery
Incentive spirometry, pain control
Hemodynamics stable
Hemoglobin noted. Follow. Chest tube with minimal drainage
EKG noted. First-degree AV block
Septal infarct noted.
Prior ischemic workup unremarkable. Patient well-known to cardiology, following
Follow blood sugars, remains on insulin drip, plan to discontinue later p.m.
Patient on Ozempic as outpatient
Diabetes DOOR CLAMP OPERATOR following
Glycemic protocol continues, eventual transition to subcutaneous insulin 06/16
Once glycemic protocol discontinued, patient transferred to telemetry, we will sign off
Please call with questions
Reviewed with critical care nursing
Subjective Dataa
Subjective Data
Date of Service:
Date of Service: June 16, 2024
Subjective:
Patient ambulating in the hardwick without significant difficulty. Mild lightheadedness but otherwise denies significant shortness of breath, chest pain. Denies nausea. Appears to be in good spirits, comfortable
Objective Data
Data Reviewed
Vital Signs / I&O / Oxygen:
Vital Signs
Temp Pulse Resp BP Pulse Ox
98.3 F 80 15 137/61 96
06/16/24 04:00 06/16/24 07:00 06/16/24 01:00 06/16/24 07:00 06/16/24 07:34
Intake and Output
06/15/24 06/16/24 06/17/24
06:59 06:59 06:59
Intake Total 876.8 / 887.4 940.3 / 951.3
Output Total 1310 / 1390 1495 / 1540 45 / 45
Balance -433.2 / -502.6 -554.7 / -588.7 -34 / -34
SaO2 [CPAP/PSV] 98
SaO2 [SIMV] 97
SaO2 96
Nasal Cannula flow liters per 1
minute
Physical Exam
General: Comfortable
HEENT: Normocephalic and Anicteric
Cardiovascular: S1-S2, Regular Rhythm, Murmur (n) and Rub (n)
Respiratory: Wheeze (n), Crackles (n), Rhonchi (n), Non-Labored Respirations and Other (Mild splinting)
GI: Soft, Non Distended and Non Tender
Neurology: Awake, Alert and No Motor Deficits (Moves all extremities)
Skin: Cyanosis (n), Jaundice (n) and Rash (n)
Labs/Micro/Reports
Lab Data
06/16/24 04:13
06/16/24 04:14
--- NOTE | 2024-06-16 07:57 | PTCARENOTE ---
Patient received from table games shift manager resting oob in chair, AAO X 3, states pain controlled at this time. NSR via cm, SaO2 @ 96% on RA. RIJ Cordis w/kvo infusing. Epicardial V-wire to pulse generator, off. R pleural chest tube, mediastinal chest tubes x
2 - to separate pleurevacs, no leaks or crepitus noted on -20cm suction. All procedural sites stable. Insulin gtt infusing peripherally, titrating per glycemic protocol. Patient updated to plan of care for the day, in agreement. See work list for
full assessment and interventions performed.
[2024-06-16] MEDS: LOPRESSOR 25 MG PO (08:13)
[2024-06-16] MEDS: FEOSOL 325 MG PO (08:13)
[2024-06-16] MEDS: NEURONTIN 100 MG PO ×3 (08:13→21:10)
[2024-06-16] MEDS: BACTROBAN 2% OINTMENT 1 APPLIC NASAL ×2 (08:13→21:11)
[2024-06-16] MEDS: VITAMIN C 500 MG PO (08:13)
[2024-06-16] MEDS: PACERONE 200 MG PO ×3 (08:14→21:10)
[2024-06-16] MEDS: PROTONIX 40 MG PO (08:14)
[2024-06-16] MEDS: LOW STRENGTH ASPIRIN 81 MG PO (08:14)
[2024-06-16] MEDS: CRESTOR 40 MG PO (08:14)
[2024-06-16] MEDS: ZETIA 10 MG PO (08:14)
[2024-06-16] MEDS: SENOKOT-S 1 TABLET PO ×2 (08:14→21:09)
--- NOTE | 2024-06-16 08:14 | W.PN.CD ---
Today's Communication / Plan
-
cont ASA, statin, metoprolol
trend tele
Impression / Plan
-
I64M with insulin-dependent diabetes mellitus, hypertension, dyslipidemia, and severe aortic stenosis admitted s/p bio-AVR
Outpatient piece work checker: Dr. Coffey
Severe arctic stenosis s/p AVR (#25 Inspiris Martíneza) 06/14
-Operative findings: Bicuspid with bulky leaf calcifications
-Post JAMEEL LVEF 65% with well-seated AVR and MG of 6 mmHg
-tele: sinus
-cont ASA 81mg daily
Abnormal EKG
-pericarditis pattern, but no chest pain
-monitor
Hypertension: assess to resume home lisinopril as he recovers from OR
-continues on metoprolol
CKD3a
-stable
HLD, on rosuvastatin, zetia
Type 2 diabetes mellitus requiring insulin, HgbA1c 7.1%
Physical Exam
Vital Signs/Labs
Vital Signs
Temp Pulse Resp BP Pulse Ox
98.3 F 95 15 137/61 96
06/16/24 04:00 06/16/24 08:00 06/16/24 01:00 06/16/24 07:00 06/16/24 07:53
06/15/24 06/16/24 06/17/24
06:59 06:59 06:59
Actual Weight 80.5 kg 80.6 kg
06/16/24 04:13
06/16/24 04:14
PT 17.3 Sec (11.4-14.6) H 06/14/24 11:24
INR 1.39 06/14/24 11:24
APTT 35.3 Sec (23.4-35.0) H 06/14/24 11:24
Magnesium 1.9 mg/dl (1.6-2.3) 06/16/24 04:14
Physical Exam
Constitutional: No acute distress and Comfortable
EENT: Moist mucous membranes
Cardiovascular: Rhythm & rate is regular, Pedal edema is absent, JVD pressure is normal and Systolic murmur absent
Respiratory: Respiratory effort normal and Lungs clear to auscul.
Neuro/Psych: AO x 3
Data Reviewed
-
Date of Service: June 16, 2024
EKG: Other (Tele: SR 80s)
Labs: Labs Reviewed by me
[2024-06-16] MEDS: MAGNESIUM OXIDE 500 MG PO ×2 (08:16→21:09)
--- NOTE | 2024-06-16 08:20 | PN.DE.MGMTRT ---
Insulin Management
- -
06/16/2024 Diabetes Management Consult Follow up
Patient admitted 06/14 for OR for AVR. PMH: HTN, HLD, T2DM, hypothyroidism, history of colon polyps, Nephrolithiasis, diverticulitis and Severe w/ NL EF. Per outpatient records, pt was noted for progressive SOB over the past year. Patient was
getting more short of breath with simple activities and that his exercise tolerance had gone down. 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 Prior to admission was taking NovoLog 5 units AC, Lantus 32 units @
HS and Ozempic Q Mondays prior to admission. A1C 7.1%, Cr 1.2, eGFR >60
POD 2 s/p AVR, resting in bed, alert and oriented able to discuss diabetes plan of care. at bedside, very supportive Patient states he has had diabetes 25 years and is managed by primary doctor. He has a DexCom CGM @ home, to resume after
discharge. Requests information for hide shaker, recommended [facility] and endo, Dr. Landin.
Glucose range 92 to 162 requiring .1 to 3.5 units of insulin per hours. Will continue glycemic protocol until after dinner. Will give 32 units lantus (home dose)@ 8pm, insulin infusion off 2 hours later. Will resume 5 units novolog @ each meal with
moderate corrective insulin 06/17.
Discussed with nurse.
Will follow
Diabetes History
- -
Type of Diabetes: 2 requiring insulin
Pre-Admission Diabetes Regimen
06/16/24
04:14
Creatinine 1.4 H
Lab Results
Hemoglobin A1c 7.1 % (4.0-5.6) H 06/04/24 08:55
Insulin Pump Settings
IP Diabetes Regimen
06/15/24 06/15/24 06/15/24
08:44 10:36 12:20
Glucose
POC Glucose 119 H 137 H 99
06/15/24 06/15/24 06/15/24
14:27 16:20 18:07
Glucose
POC Glucose 104 H 162 H 149 H
06/15/24 06/15/24 06/16/24
20:47 22:18 00:15
Glucose
POC Glucose 123 H 140 H 135 H
06/16/24 06/16/24 06/16/24
01:16 02:23 04:03
Glucose
POC Glucose 104 H 101 H 108 H
06/16/24 06/16/24 06/16/24
04:14 05:02 06:30
Glucose 100 H
POC Glucose 106 H 77
06/16/24
07:28
Glucose
POC Glucose 138 H
Meal type: Dinner
Amount consumed: 30%
Patient Education
[2024-06-16] MEDS: NOVOLOG FLEXPEN 4 UNITS SC ×3 (08:22→17:38)
[2024-06-16 09:03] LABS: Glucose - Point of Care 206 mg/dl (70-99)
--- NOTE | 2024-06-16 09:33 | PTCARENOTE ---
Chest tubes d/c'd as ordered by this RN and RN assist. Patient tolerated well. Epicardial pacing wires insulated to chest wall.
[2024-06-16] MEDS: NSS 500 IV (10:01)
[2024-06-16 10:12] LABS: Glucose - Point of Care 150 mg/dl (70-99)
--- NOTE | 2024-06-16 11:11 | CM ---
Reviewed chart. Met with Mr. Cartagena to review discharge plans. He staets he is feeling better. He states he ambulates in the hallway today. We reviewed a home visit by the Transitional Care Nurse. He is agreeable to a home visit. Prior to
admission he resides with his significant other in a two story home. He has a full flight of steps to get to bedroom/full bathroom. He has a powder room on the first floor. Prior to admission he was independent with ambulation and adls. He does
not have any DME in the home. He has a prescription plan and uses [facility]. He states his significant other will be home to assist in his care if needed. Medical work-up in progress. The discharge plan is to return home with his
significant other and a home visit by the Transitional Care Nurse when medically stable.
[2024-06-16 11:17] LABS: Glucose - Point of Care 131 mg/dl (70-99)
[2024-06-16 13:04] LABS: Glucose - Point of Care 100 mg/dl (70-99)
--- NOTE | 2024-06-16 13:04 | PN.CDI ---
CDI
- -
CDI:
Physician Documentation Request
Admit Date: 06/14/24 04:56
Dear Doctor Jean Pierre,
Please review the following and provide your response in the progress notes.
Clinical Indicators:
- 06/14 AVR
- 500ml IVF x 2
- Creatinine levels:
Laboratory Tests
06/14/24 06/14/24 06/15/24
05:05 11:24 02:04
Creatinine 1.4 H 1.2 1.5 H
Clarify which of the following accurately represents the patient's renal status:
JOSE on CKD 3a
CKD3a
Other (please specify)
Criteria for JOSE*
1 Increase in serum creatinine by > or = to 0.3 mg/dL (> or = to 26.5 micromol/L) within 48 hours, OR
2 Increase in serum creatinine to > or = to 1.5 times baseline, which is known or presumed to have occurred within 7 days, OR
3 Urine volume < 0.5 nL/kg/hour for six hours
Stages of Chronic Kidney Disease*
Level Description GFR
G1 Normal or High >90
G2 Mildly decreased 60-89
G3a Mildly to moderately decreased 45-59
G3b Moderately to severely decreased 30-44
G4 Severely decreased 15-29
G5 Kidney failure <15
Use of terms such as suspected, likely, concern for, or probable (associated with a specific diagnosis that is being evaluated, monitored, or treated as if it exists) are acceptable and can be coded in the inpatient setting, when documented at the
time of discharge.
Thank you,
Abel Ramsey RN
CDI Specialist
Please use your independent medical judgment in providing your response.
*Source: Kidney Disease: Improving Global Outcomes (KDIGO) 2012
--- NOTE | 2024-06-16 13:19 | W.PN.UPDATE ---
Update Note
Progress Note Update
CDI Query:
JOSE on CKD 3a
[2024-06-16 15:11] LABS: Glucose - Point of Care 202 mg/dl (70-99)
--- NOTE | 2024-06-16 15:56 | PTCARENOTE ---
Pt able to void 200 ml james urine w/o issue. Ambulating in hallway with minimal assistance. VSS. Assessment otherwise unchanged from prior.
[2024-06-16 16:24] LABS: Glucose - Point of Care 183 mg/dl (70-99)
[2024-06-16 17:33] LABS: Glucose - Point of Care 125 mg/dl (70-99)
--- NOTE | 2024-06-16 20:30 | PTCARENOTE ---
assumed care of pt from previous RN. pt A&Ox4, resting in bed at time of assessment. SR on tele-monitor. temp epicardial v-wires insulated. POX 95% on RA. abd s/n, +BS. pt confirms passing gas. voiding in urinal. all surgical sites stable, CDI. R IJ
cordis w/ KVO. PIV intact. see worklist for complete nursing assessment, interventions, VS, and I&Os.
[2024-06-16 20:55] LABS: Glucose - Point of Care 206 mg/dl (70-99)
[2024-06-16] MEDS: LOPRESSOR 50 MG PO (21:09)
[2024-06-16] MEDS: LANTUS 0.32 UNITS SC (21:10)
[2024-06-16 22:02] LABS: Glucose - Point of Care 192 mg/dl (70-99)
[2024-06-16 23:17] LABS: Glucose - Point of Care 138 mg/dl (70-99)
[2024-06-17] VITALS (10 sets, daily range): BP systolic 115–152; BP diastolic 58–76; PULSE 90; O2SAT 97–98; BMI 27.6
--- NOTE | 2024-06-17 01:00 | PTCARENOTE ---
no acute changes. VSS. SR on tele-monitor.
[2024-06-17 01:19] LABS: Glucose - Point of Care 186 mg/dl (70-99)
--- NOTE | 2024-06-17 03:40 | PTCARENOTE ---
assessment remains unchanged. VSS. AM labs collected and sent.
[2024-06-17 04:02] LABS: Hemoglobin 10.3 g/dL (13.0-18.0); Mean Corp Hgb Conc. 35.5 g/dL (33.0-37.0); Mean Corpuscular Hgb 32.4 pg (27.0-31.0); Mean Corpuscular Volume 91.2 fL (80.0-94.0); Mean Platelet Volume 11.1 fL (7.4-10.4); Platelet Count 189 10^3/uL (130-400); Red Blood Cell Count 3.18 10^6/uL (4.70-6.10); Red Cell Dist. Width 12.2 % (11.5-14.5); White Blood Cell Count 14.8 10^3/uL (4.8-10.8)
[2024-06-17 04:30] LABS: Blood Urea Nitrogen 32 mg/dl (9-20); Calcium 8.7 mg/dl (8.4-10.2); Carbon Dioxide 26 mmol/L (22-30); Chloride 106 mmol/L (98-107); Estimated Creatinine Clearance 48 ml/min; Glucose 197 mg/dl (70-99); Magnesium 1.8 mg/dl (1.6-2.3); Potassium 5.2 mmol/L (3.5-5.1); Sodium 138 mmol/L (135-145); eGFR 52.31
[2024-06-17] MEDS: TYLENOL 1000 MG PO ×3 (06:00→21:44)
[2024-06-17] MEDS: SYNTHROID 100 MCG PO (06:00)
[2024-06-17] MEDS: FLEXERIL 5 MG PO ×3 (06:11→21:47)
--- NOTE | 2024-06-17 07:00 | PTCARENOTE ---
report received from previous RN. Pt OOB in chair, resting comfortably. AAOx3. NSR on telemetry heart rate in 60s. pulses palpable. trace edema. pt on room air, sat 94-98%. lung sounds diminished in bases. IS [id number]. active bowel sounds, reports
poor appetite. voiding in urinal. surgical sites CDI. Right IJ cordis infusing KVO. surgical sites CDI.pt updated on plan of care for today. see worklist for full nursing assessment and interventions.
--- NOTE | 2024-06-17 07:09 | W.PN.CT ---
Today's Communication / Plan
-
-pod #3
-no issues overnight
-no drips, no CTs
-continue cureent meds
-weaned off O2 - POx 96% RA
-d/c Cordis
-encourage IS, OOB, ambulate
Assessment / Plan
-
Assessment:
-S/P Median sternotomy/AVR (#25 Inspiris Resilia), by Dr. Greenfield, 06/14/24, pod#3
-Severe aortic stenosis (P/M: 95/55, BOWEN 0.7)
-Bicuspid aortic valve (SIEVER I)
-LVEF 60-65%
-HTN
-HLD
-T2DM with retinopathy (hgb A1C 7.1, on Insulin)
-CKD3a
-Hyperkalemia
-Nephrolithiasis
-Cholelithiasis
-Hypothyroidism
-Anemia
-Diverticulosis
-Colon polyps
-Hx of LLE laceration
-S/P dental implants
-Acute postop blood loss/Anemia (stable without blood transfusion)
-Acute postop atelectasis
-Acute postop hypovolemia with subsequent hypervolemia
-Acute postop probable pericarditis per EKG
Discussed patient care with: Nursing and Care Team
Subjective
Procedure
S/P Median sternotomy/AVR (#25 Inspiris Resilia), by Dr. Greenfield, 06/14/24
-
Date of Service: June 17, 2024
Objective Data
-
Lab Results
06/17/24 03:29
06/17/24 03:29
PT 17.3 Sec (11.4-14.6) H 06/14/24 11:24
INR 1.39 06/14/24 11:24
APTT 35.3 Sec (23.4-35.0) H 06/14/24 11:24
Vital Signs
Vital Signs
Temp Pulse Resp BP Pulse Ox
98.1 F 76 14 147/76 97
06/17/24 03:30 06/17/24 05:00 06/17/24 03:30 06/17/24 03:31 06/17/24 03:31
CT Intake/Output/Weight
06/16/24 06/17/24 06/17/24
18:59 06:59 18:59
Intake Total 842.2 / 936.8 94.6 / 936.8
Output Total 705 / 1305 600 / 1305
Balance 137.2 / -368.2 -505.4 / -368.2
SaO2: 97
Physical Exam
-
General: Awake and AOx3
Cardiovascular: Regular rate & rhythm, No Murmurs and Rub
Respiratory: Decreased Breath Sounds
Sternum: Stable
Incision: Clean, Dry and Intact
Extremities: No Edema
Abdomen: soft, nontender, nondistended, + bowel sounds
Data Reviewed
-
Lab Results: Results Reviewed
Medications: Active Meds Reviewed
Chest X-Ray: Report Reviewed and Image Reviewed
ECG: Report Reviewed and Image Reviewed
[2024-06-17] MEDS: NOVOLOG FLEXPEN 5 UNITS SC ×3 (07:49→18:03)
[2024-06-17] MEDS: NOVOLOG FLEXPEN-MODERATE RESISTANCE 5 UNITS SC ×2 (07:50→18:03)
[2024-06-17 07:53] LABS: Glucose - Point of Care 250 mg/dl (70-99)
--- NOTE | 2024-06-17 08:04 | W.PN.INTV ---
Today's Communication / Plan
Recommendations
Chest tubes removed, CXR normal
Mild leukocytosis noted, follow clinically
Insulin drip has been discontinued
Pain control, out of bed to chair, ambulate
Once patient is transferred to telemetry, we will sign off. Please call with questions
Assessment
-
64-year-old male with history of hypertension, hyperlipidemia, diabetes, lives active lifestyle with progressive symptoms found to have severe arctic stenosis, normal LV function. He is status post bioprosthetic AVR 06/14. We are asked to help from
critical care standpoint
S/p AVR 06/14/2024
Severe aortic stenosis, normal LV function
Abnormal EKG, septal infarct
Chronic, ischemia workup negative
Postoperative anemia
Conditions present prior to admission
Hypertension/hyperlipidemia
History of diabetes
History of nephrolithiasis
Family history of coronary disease, alcoholism, drug abuse
Hypothyroidism
Plan/recommendations
At this time, patient appears to be doing well
Insulin drip has been discontinued
Chest tubes have been removed
Ambulating without difficulty
Chest x-ray without acute findings
Hemoglobin stable
mild leukocytosis noted
Moving forward
Continue with management per CT surgery
Incentive spirometry, pain control
Hemodynamics stable
Hemoglobin noted. Follow. Chest tube removed
EKG noted. First-degree AV block
Septal infarct noted.
Prior ischemic workup unremarkable. Patient well-known to cardiology, following
Off insulin drip
Patient on Ozempic as outpatient
Diabetes ORACLE FUSION DEVELOPER following
Reviewed with nursing
Once patient transferred to telemetry, we will sign off.
Subjective Dataa
Subjective Data
Date of Service:
Date of Service: June 17, 2024
Subjective:
Patient has been weaned off insulin drip. He denies any significant symptoms, sitting in chair, appears comfortable, complaining of feeling warm
Objective Data
Data Reviewed
Vital Signs / I&O / Oxygen:
Vital Signs
Temp Pulse Resp BP Pulse Ox
98.8 F 76 14 147/76 97
06/17/24 07:37 06/17/24 05:00 06/17/24 03:30 06/17/24 03:31 06/17/24 07:13
Intake and Output
06/16/24 06/17/24 06/18/24
06:59 06:59 06:59
Intake Total 940.3 / 951.3 936.8 / 936.8
Output Total 1495 / 1540 1305 / 1305
Balance -554.7 / -588.7 -368.2 / -368.2
SaO2 [CPAP/PSV] 98
SaO2 [SIMV] 97
SaO2 97
Nasal Cannula flow liters per 1
minute
Physical Exam
General: Comfortable
HEENT: Normocephalic and Anicteric
Cardiovascular: S1-S2, Regular Rhythm, Murmur (n) and Rub (n)
Respiratory: Wheeze (n), Crackles (n), Rhonchi (n), Non-Labored Respirations and Other (Mild splinting)
GI: Soft, Non Distended and Non Tender
Neurology: Awake, Alert and No Motor Deficits (Moves all extremities)
Skin: Cyanosis (n), Jaundice (n), Rash (n) and Other (Back of his shirt with sweats)
Labs/Micro/Reports
Lab Data
06/17/24 03:29
06/17/24 03:29
[2024-06-17] MEDS: BACTROBAN 2% OINTMENT 1 APPLIC NASAL ×2 (08:08→21:43)
[2024-06-17] MEDS: LOW STRENGTH ASPIRIN 81 MG PO (08:09)
[2024-06-17] MEDS: PACERONE 200 MG PO ×3 (08:09→21:49)
[2024-06-17] MEDS: SENOKOT-S 1 TABLET PO ×2 (08:09→21:44)
[2024-06-17] MEDS: VITAMIN C 500 MG PO (08:09)
[2024-06-17] MEDS: FEOSOL 325 MG PO (08:09)
[2024-06-17] MEDS: ZETIA 10 MG PO (08:09)
[2024-06-17] MEDS: LOPRESSOR 50 MG PO ×2 (08:09→21:47)
[2024-06-17] MEDS: NEURONTIN 100 MG PO ×3 (08:09→21:43)
[2024-06-17] MEDS: CRESTOR 40 MG PO (08:10)
[2024-06-17] MEDS: PROTONIX 40 MG PO (08:10)
[2024-06-17] MEDS: MAGNESIUM OXIDE 500 MG PO ×2 (08:10→21:44)
--- NOTE | 2024-06-17 09:00 | PTCARENOTE ---
right IJ cordis removed per orders. pt tolerated well.
--- NOTE | 2024-06-17 09:14 | PN.DE.MGMTRT ---
Insulin Management
- -
06/17/2024 Diabetes Management Consult Follow up
Patient admitted 06/14 for OR for AVR. PMH: HTN, HLD, T2DM, hypothyroidism, history of colon polyps, Nephrolithiasis, diverticulitis and Severe w/ NL EF. Per outpatient records, pt was noted for progressive SOB over the past year. Patient was
getting more short of breath with simple activities and that his exercise tolerance had gone down. 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 Prior to admission was taking NovoLog 5 units AC, Lantus 32 units @
HS and Ozempic Q Mondays prior to admission. A1C 7.1%, Cr 1.2, eGFR >60
POD 3 s/p AVR, resting in bed, alert and oriented able to discuss diabetes plan of care. at bedside, very supportive. Patient states he has had diabetes 25 years and is managed by primary doctor. He has a DexCom CGM @ home, to resume after
discharge. 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 Landin.
Transitioned from glycemic insulin infusion last evening, received 32 units lantus (home dose). Fasting glucose this AM 250. Will increase HS lantus to 35 units.
5 units novolog @ each meal with moderate corrective insulin. Discussed benefits of Farxiga with patient. TT Dr. Coffey, cardiology, he is in agreement. Will add Farxiga 10 mg daily, first dose this AM.
Discussed with nurse.
Will follow
Diabetes History
- -
Type of Diabetes: 2 requiring insulin
Pre-Admission Diabetes Regimen
06/17/24
03:29
Creatinine 1.5 H
Lab Results
Hemoglobin A1c 7.1 % (4.0-5.6) H 06/04/24 08:55
Insulin Pump Settings
IP Diabetes Regimen
06/16/24 06/16/24 06/16/24
10:11 11:16 13:03
Glucose
POC Glucose 150 H 131 H 100 H
06/16/24 06/16/24 06/16/24
15:09 16:23 17:31
Glucose
POC Glucose 202 H 183 H 125 H
06/16/24 06/16/24 06/16/24
20:54 22:01 23:16
Glucose
POC Glucose 206 H 192 H 138 H
06/17/24 06/17/24 06/17/24
01:18 03:29 07:49
Glucose 197 H
POC Glucose 186 H 250 H
Patient Education
[2024-06-17] MEDS: LASIX 40 MG IV (09:46)
--- NOTE | 2024-06-17 10:35 | W.PN.CD ---
Today's Communication / Plan
-
cont metoprolol
trend tele
Impression / Plan
-
I64M with insulin-dependent diabetes mellitus, hypertension, dyslipidemia, and severe aortic stenosis admitted s/p bio-AVR
Outpatient card grader: Dr. oCffey
Severe aortic stenosis s/p AVR (#25 Payam Low) 06/14
-Operative findings: Bicuspid with bulky leaf calcifications
-Post JAMEEL LVEF 65% with well-seated AVR and MG of 6 mmHg
-tele: sinus
-cont ASA 81mg daily
Abnormal EKG
-pericarditis pattern, but no chest pain
-monitor
Hypertension: assess to resume home lisinopril as he recovers from OR
-continues on metoprolol with stable BP
CKD3a
-stable
HLD, on rosuvastatin, zetia
Type 2 diabetes mellitus requiring insulin, HgbA1c 7.1%
Physical Exam
Vital Signs/Labs
Vital Signs
Temp Pulse Resp BP Pulse Ox
98.8 F 82 14 131/70 97
06/17/24 07:37 06/17/24 10:00 06/17/24 03:30 06/17/24 09:46 06/17/24 08:07
06/16/24 06/17/24 06/18/24
06:59 06:59 06:59
Actual Weight 80.6 kg 80 kg
06/17/24 03:29
06/17/24 03:29
PT 17.3 Sec (11.4-14.6) H 06/14/24 11:24
INR 1.39 06/14/24 11:24
APTT 35.3 Sec (23.4-35.0) H 06/14/24 11:24
Magnesium 1.8 mg/dl (1.6-2.3) 06/17/24 03:29
Physical Exam
Constitutional: No acute distress and Comfortable
EENT: Moist mucous membranes
Cardiovascular: Rhythm & rate is regular, Pedal edema is absent, JVD pressure is normal and Systolic murmur absent
Respiratory: Respiratory effort normal and Lungs clear to auscul.
Neuro/Psych: AO x 3
Data Reviewed
-
Date of Service: June 17, 2024
EKG: Other (Tele: NSR 70s)
Labs: Labs Reviewed by me
[2024-06-17] MEDS: NSS IV (10:59)
[2024-06-17] MEDS: FARXIGA 10 MG PO (11:05)
--- NOTE | 2024-06-17 11:47 | CM ---
Reviewed chart. Met with Mr. Cartagena and his significant other to review discharge plans. He states he is feeling well and maybe able to go home soon. Asked to piedra Jardiance and Farxiga. Telephone call to [facility]. to check his co-pay.
Jardiance 10 mg po daily is $100.00 a month or $200.00 for a three month supply. He has commercial insurance so he can use the $10.00 coupon. Farxiga 10 mg po daily is also $100.00 a month or $200.00 for a three month supply. He has commercial
insurance so he can use the zero co-pay card. Reviewed co-pay with him and tobacco prevention health educator. He is agreeable to the co-pay. Farxiga is the medication he will go home on. Placed the free coupon in his red discharge folder. Prior to admission he
resides with his significant other in a two story home. He has a full flight of steps to get to bedroom/full bathroom. He has a powder room on the first floor. He has been ambulating in the hallway. Prior to admission he was independent with
ambulation and adls. He does not have any DME in the home. He has a prescription plan with [facility] and uses [facility]. His significant other states she will be home to assist in his care if needed. Medical work-up in progress. The
discharge plan is to return home with his significant other and a home visit by the Transitional Care Nurse when medically stable.
--- NOTE | 2024-06-17 12:00 | PTCARENOTE ---
pt ambulated in room independently. no changes in assessment noted.
[2024-06-17 12:15] LABS: Glucose - Point of Care 230 mg/dl (70-99)
[2024-06-17] MEDS: NOVOLOG FLEXPEN-MODERATE RESISTANCE 3 UNITS SC (12:54)
--- NOTE | 2024-06-17 16:00 | PTCARENOTE ---
pt ambulated in [place] independently. no changes in assessment noted.
[2024-06-17 16:39] LABS: Glucose - Point of Care 291 mg/dl (70-99)
--- NOTE | 2024-06-17 20:45 | PTCARENOTE ---
assumed care of pt from previous RN. pt A&Ox4, resting in bed at time of assessment. pt ambulating independently. SR on tele-monitor. temp epicardial v-wires insulated. POX 96% on RA. abd s/n, +BS. pt confirms passing gas. voiding clear, yellow
urine. all surgical sites stable, CDI. PIV intact. see worklist for complete nursing assessment, interventions, VS, and I&Os.
[2024-06-17 21:47] LABS: Glucose - Point of Care 288 mg/dl (70-99)
[2024-06-17] MEDS: LANTUS 0.35 UNITS SC (21:47)
[2024-06-18] VITALS (7 sets, daily range): BP systolic 122–136; BP diastolic 62–103; PULSE 77; O2SAT 97–99; BMI 26.9
--- NOTE | 2024-06-18 01:00 | PTCARENOTE ---
assessment remains unchanged. VSS.
--- NOTE | 2024-06-18 04:21 | PTCARENOTE ---
no acute changes. VSS. AM labs collected and sent.
[2024-06-18 04:38] LABS: Hematocrit 27.3 % (39.0-52.0); Hemoglobin 9.9 g/dL (13.0-18.0); Mean Corp Hgb Conc. 36.3 g/dL (33.0-37.0); Platelet Count 192 10^3/uL (130-400); Red Cell Dist. Width 12.2 % (11.5-14.5); White Blood Cell Count 9.7 10^3/uL (4.8-10.8)
[2024-06-18 04:58] LABS: Blood Urea Nitrogen 42 mg/dl (9-20); Calcium 8.9 mg/dl (8.4-10.2); Carbon Dioxide 27 mmol/L (22-30); Chloride 103 mmol/L (98-107); Estimated Creatinine Clearance 40 ml/min; Glucose 218 mg/dl (70-99); Potassium 4.9 mmol/L (3.5-5.1); Sodium 138 mmol/L (135-145); eGFR 42.03
[2024-06-18] MEDS: TYLENOL 1000 MG PO (06:19)
[2024-06-18] MEDS: SYNTHROID 100 MCG PO (06:20)
--- NOTE | 2024-06-18 07:28 | W.PN.CT ---
Today's Communication / Plan
-
-pod #4
-no issues overnight
-follow Cr - 1.8 today (1.4-1.5 prior)
-follow 2v-CXR
-current meds (ASA, Crestor, Zetia, Lopressor, Amio, Farxiga, Feosol, Insulin, Protonix)
-encourage IS, OOB, ambulate
-possible d/c
Assessment / Plan
-
Assessment:
-S/P Median sternotomy/AVR (#25 Inspiris Resilia), by Dr. Greenfield, 06/14/24, pod#4
-Severe aortic stenosis (P/M: 95/55, BOWEN 0.7)
-Bicuspid aortic valve (SIEVER I)
-LVEF 60-65%
-HTN
-HLD
-T2DM with retinopathy (hgb A1C 7.1, on Insulin)
-CKD3a
-Hyperkalemia
-Nephrolithiasis
-Cholelithiasis
-Hypothyroidism
-Anemia
-Diverticulosis
-Colon polyps
-Hx of LLE laceration
-S/P dental implants
-Acute postop blood loss/Anemia (stable without blood transfusion)
-Acute postop atelectasis
-Acute postop hypovolemia with subsequent hypervolemia
-Acute postop probable pericarditis per EKG
Discussed patient care with: Nursing and Care Team
Subjective
Procedure
S/P Median sternotomy/AVR (#25 Inspiris Resilia), by Dr. Greenfield, 06/14/24
-
Date of Service: June 18, 2024
Objective Data
-
PT 17.3 Sec (11.4-14.6) H 06/14/24 11:24
INR 1.39 06/14/24 11:24
APTT 35.3 Sec (23.4-35.0) H 06/14/24 11:24
Vital Signs
Vital Signs
Temp Pulse Resp BP Pulse Ox
98.4 F 75 14 128/71 96
06/18/24 01:00 06/18/24 01:00 06/18/24 01:00 06/18/24 00:54 06/18/24 01:00
CT Intake/Output/Weight
06/17/24 06/17/24 06/18/24
06:59 18:59 06:59
Intake Total 94.6 / 936.8 260 / 260
Output Total 600 / 1305 400 / 800 400 / 800
Balance -505.4 / -368.2 -140 / -540 -400 / -540
SaO2: 96
Physical Exam
-
General: Awake and AOx3
Cardiovascular: Regular rate & rhythm, No Murmurs and Rub
Respiratory: Decreased Breath Sounds
Sternum: Stable
Incision: Clean, Dry and Intact
Abdomen: soft, nontender, nondistended, + bowel sounds
Extremities: No Edema
Data Reviewed
-
Lab Results: Results Reviewed
Medications: Active Meds Reviewed
Chest X-Ray: Report Reviewed and Image Reviewed
ECG: Report Reviewed and Image Reviewed
[2024-06-18] MEDS: NOVOLOG FLEXPEN 5 UNITS SC (07:35)
[2024-06-18] MEDS: NOVOLOG FLEXPEN-MODERATE RESISTANCE 3 UNITS SC (07:36)
[2024-06-18] MEDS: BACTROBAN 2% OINTMENT 1 APPLIC NASAL (07:36)
[2024-06-18 07:39] LABS: Glucose - Point of Care 223 mg/dl (70-99)
[2024-06-18] MEDS: ZETIA 10 MG PO (07:48)
[2024-06-18] MEDS: FARXIGA 10 MG PO (07:48)
[2024-06-18] MEDS: CRESTOR 40 MG PO (07:48)
[2024-06-18] MEDS: VITAMIN C 500 MG PO (07:48)
[2024-06-18] MEDS: LOPRESSOR 50 MG PO (07:48)
[2024-06-18] MEDS: PROTONIX 40 MG PO (07:48)
[2024-06-18] MEDS: MAGNESIUM OXIDE 500 MG PO (07:48)
[2024-06-18] MEDS: PACERONE 200 MG PO (07:48)
[2024-06-18] MEDS: FEOSOL 325 MG PO (07:48)
[2024-06-18] MEDS: NEURONTIN 100 MG PO (07:49)
[2024-06-18] MEDS: SENOKOT-S 1 TABLET PO (07:49)
[2024-06-18] MEDS: LOW STRENGTH ASPIRIN 81 MG PO (07:49)
[2024-06-18] MEDS: NSS IV (08:02)
--- NOTE | 2024-06-18 08:08 | PTCARENOTE ---
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 NSR via cm, SaO2 @ 99% on RA. Epicardial V-wire, insulated to chest wall. All procedural sites stable. Patient updated to plan of care for the day,
in agreement. See work list for full assessment and interventions performed.
--- NOTE | 2024-06-18 08:41 | PN.DE.MGMTRT ---
Insulin Management
- -
06/18/2024: Diabetes Management Follow up
Patient admitted 06/14 for AVR. PMH: HTN, HLD, T2DM, hypothyroidism, history of colon polyps, Nephrolithiasis, diverticulitis and Severe w/ NL EF. Per outpatient records, pt was noted for progressive SOB over the past year. Patient was getting
more short of breath with simple activities and that his exercise tolerance had gone down. 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 Prior to admission was taking NovoLog 5 units AC, Lantus 32 units @ HS and
Ozempic Q Mondays prior to admission. A1C 7.1%, Cr 1.2, eGFR >60
POD #4 s/p AVR, resting in bed, alert and oriented able to discuss diabetes plan of care. at bedside, very supportive. Patient states he has had diabetes 25 years and is managed by primary doctor. He has a DexCom CGM @ home, to resume after
discharge. 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 Landin.
Transitioned from glycemic insulin infusion on 06/16 @hs, received 32 units Lantus (home dose). 06/17 FBG 250, HS Lantus was increased to 35 units and AC NovoLog 5 units was started. Noted for JOSE, Cr 1.2-->1.5-->1.8, eGFR 42.03 today.
/ premeal glucose range elevated, 230 to 291 requiring 3-5 units of corrective insulin @ each meal.
Will increase AC NovoLog to 8 units and increase Lantus to 37 units. Cont Farxiga and moderate corrective insulin.
Discussed with nurse. Will cont to follow.
Meds at discharge: Farxiga 10 mg daily, NovoLog 8 units AC, Lantus 35 units @ HS
Diabetes History
- -
Type of Diabetes: 2 requiring insulin
Pre-Admission Diabetes Regimen
06/18/24
04:20
Creatinine 1.8 H
Lab Results
Hemoglobin A1c 7.1 % (4.0-5.6) H 06/04/24 08:55
Insulin Pump Settings
IP Diabetes Regimen
06/17/24 06/17/24 06/17/24
12:13 16:37 21:46
Glucose
POC Glucose 230 H 291 H 288 H
06/18/24 06/18/24
04:20 07:32
Glucose 218 H
POC Glucose 223 H
Meal type: Breakfast
Amount consumed: 75%
Patient Education
--- NOTE | 2024-06-18 08:48 | W.DCSUMMARY ---
Discharge Summary
Discharge Data
Date of Admission: 06/14/24
Date of Discharge: 06/18/24
Total time spent discharging patient (in min): 45
-
Pending Results: No
Hospital Course
Primary care physician:
Dr. Juliette Tellez
Outpatient shipping hand:
Dr. Coffey
Inpatient consultants:
CBC, chemical treatment plant technician, DM management anodize machine operator
Procedures:
1. Median sternotomy/AVR (#25 Inspiris Resilia), by Dr. Greenfield, 06/14/24
Primary Diagnosis:
1. Severe Aortic Stenosis
Secondary Diagnoses:
1. Bicuspid AV
2. HTN
3. HLD
4. T2DM with retinopathy (hgb A1C 7.1, on Insulin)
5. CKD3a
6. Hypothyroidism
7. Anemia
8. Acute postop blood loss/Anemia (stable without blood transfusion)
9. Acute postop atelectasis
HPI: 64-year-old male seen in the office by Dr. Greenfield presented electively on 06/14 for a AVR.
Hospital course: Patient was electively admitted on 06/14 for an AVR with Dr. Greenfield. Postoperatively he returned to the CVICU on Cardene, Precedex, and insulin infusions. Patient's Precedex was weaned off and patient was extubated by 1350. On 06/15
postoperative day 1 patient was doing well and was started on beta-blockers insulin drip was continued due to the patient's diabetes and Amor catheter remain due to his CKD. On 06/16 postoperative day 2 patient's beta-charito was increased which she
tolerated well. Amor and chest tubes were removed without issue. Insulin drip was transitioned to his home insulin regimen. On 06/17 postoperative day 3 patient's Cordis was removed and he was diuresed with 40 mg of IV Lasix. His home dose of
Lantus was slightly increased and he was started on Farxiga. On 06/18 postoperative day 4, patient continued to do well 2 view chest x-ray remained stable and he was deemed stable for discharge home.
Home medication changes:
see below
Discharge Plan
-
Patient Disposition: Home (Routine Discharge)
Discharge Diagnosis/Procedures: Median sternotomy/AVR (#25 Inspiris Resilia), by Dr. Greenfield, 06/14/24
Condition: Good
Diet: Diabetic, Carb Controlled
Activity: No strenuous activity
Driving Restrictions: Not until seen by your Dr
Bathing Restrictions: OK to Shower
Other Services: Cardiac Rehab
Specialty Instructions: Weigh Daily- Call MD for wt gain/loss 3 lbs overnight/5 lbs in 1 week
Activity Restrictions/Additional Instructions:
ACTIVITY:
-No strenuous activity: no heavy lifting, pushing, pulling anything over 15 pounds for one month
-continue to use stairs as tolerated
DRIVING RESTRICTIONS:
-No driving for one month or until approved by your surgeon
WOUND CARE:
-Shower daily. Use soap & water.
-No lotions, creams or powders on incision area.
DIET:
-continue a low fat/low cholesterol diet.
-IF you are diabetic, continue carb controlled diet.
CARDIAC REHAB:
-Please make appointment to start in 5-6 weeks with your local hospital program. (See Cardiac Rehabilitation Discharge Booklet).
SPECIALTY INSTRUCTIONS:
-Weigh yourself daily. Call your physician for any weight gain/loss of 3 lbs overnight or 5 lbs in one week.
-REPORT any clicking noise or uneven appearance of your sternum to your surgeon immediately.
-If you smoke, you are instructed to quit. The [place] smoking hotline phone number is [phone]
Referrals:
CT Transitional Care Nurse [Outside] - in one to two days
(
The Cardiothoracic Transitional Care Nurse will call you to set up a visit in 1-2 days.)
[facility] [Outside]
(Cardiac Rehab Orientation appointment is on 07/19/2024@ 1:00pm.
The Cardiac Rehab gym is located on the first floor of the [facility].)
John Coffey MD [Active] - 07/28/24 4:00 pm
Juliette Tellez MD [Family Provider] - in four to six weeks (Please make an appointment in four to six weeks. )
Jean-Pierre Greenfield MD [Active] - 07/13/24 2:00 pm
Additional Discharge Medication Instructions: Please note that your lisinopril was not restarted and your lantus dose has been increased to 35units nightly
Prescriptions:
New
cyclobenzaprine 10 mg Tablet
5 mg PO Q8HPRN PRN (Reason: muscle spasm) Qty: 30 0RF
acetaminophen 325 mg Tablet
650 mg PO Q4HPRN PRN (Reason: mild pain,headache,temp >101F ) Qty: 0 0RF
metoprolol tartrate 50 mg Tablet
50 mg PO Q12 Qty: 60 1RF
aspirin 81 mg Tablet,Chewable
81 mg PO DAILY Qty: 0 0RF
gabapentin 100 mg Capsule
100 mg PO TID Qty: 30 0RF
oxycodone 5 mg Tablet
2.5 mg PO Q6HPRN PRN (Reason: severe pain) Qty: 10 0RF
dapagliflozin propanediol 10 mg Tablet
10 mg PO DAILY Qty: 60 1RF
Continued
levothyroxine 100 mcg Tablet
100 mcg PO DAILY
ezetimibe 10 mg Tablet
10 mg PO DAILY
insulin aspart U-100 [Novolog FlexPen U-100 Insulin] 100 unit/mL (3 mL) Insulin Pen
5 sliding scale dose SC AC
rosuvastatin 40 mg Tablet
40 mg PO DAILY
Ozempic 1 mg/dose (4 mg/3 mL) Pen Injector
1 mg SC MO
Changed
insulin glargine [Lantus Solostar U-100 Insulin] 100 unit/mL (3 mL) Insulin Pen
35 unit SC HS Qty: 0 0RF
Discontinued
lisinopril 20 mg Tablet
20 mg PO DAILY
Discharge Orders:
Discharge Patient (As Directed); Ordered 06/18/24
Ordered By: Court Ramos
Care Plan Goals
Care Plan Goals:
Problem: Readiness for enhanced knowledge related to diagnosis and treatment plan
Goal: Understand your diagnosis and treatment plan needs, including medications if applicable.
Instructions: Know your diagnosis, underlying causes and treatment plan options, including medications if applicable. Consult with your health care team to learn about your diagnosis and treatment plan, including medications if applicable.
Discharge Date and Time
Print Language: MACANESE
--- NOTE | 2024-06-18 09:49 | CM ---
Reviewed chart. Met with Mr. Cartagena to review discharge plans. He states he is feeling well and maybe able to go home soon. We reviewed a home visit by the Transitional Care Nurse. He is agreeable to home visit. Prior to admission he resides with
his significant other in a two story home. He has a full flight of steps to get to his bedroom/full bathroom. He has a powder room on the first floor. Prior to admission he was independent with ambulation and adls. He does not have any DME. He
has a prescription plan with [facility] and uses [facility]. His significant other will be home to assist in his care if needed. Medical [id number] in progress. The discharge plan is to go home with his significant other and a home visit by
the Transitional Care Nurse when medically stable.
--- NOTE | 2024-06-18 10:45 | PTCARENOTE ---
Epicardial pacing wire cut by RUBÉN Ramos, patient tolerated well. Resting comfortably. For d/c today.
--- NOTE | 2024-06-18 12:50 | PTCARENOTE ---
Patient set up to shower, completed and dressed independently. PIV removed. Discharge instructions thoroughly reviewed w/patient and SO, all questions answered. Patient and all belongings transported to waiting vehicle for d/c home.
== END 2024-06-18 13:00 | disposition home or self-care (01) | DRG 220 ==
LOC: CVICU 04:56
PROVIDERS: Anesthesiology; Nurse Practitioner; ADMITTING PHYSICIAN Thoracic Surgery (Cardiothoracic Vascular Surgery); CONSULT PHYSICIAN Internal Medicine Critical Care Medicine; FAMILY PHYSICIAN Family Medicine
PROC: 02RF08Z Replacement of Aortic Valve with Zooplastic Tissue, Open Approach (ICD-10-PCS; 2024-06-14)
PROC: B24BZZ4 Ultrasonography of Heart with Aorta, Transesophageal (ICD-10-PCS; 2024-06-14)
DX: I35.0 Nonrheumatic aortic (valve) stenosis (principal); D62 Acute posthemorrhagic anemia; N17.9 Acute kidney failure, unspecified; J98.11 Atelectasis; I30.8 Other forms of acute pericarditis; E11.319 Type 2 diabetes mellitus with unspecified diabetic retinopathy without macular edema; E78.5 Hyperlipidemia, unspecified; I44.0 Atrioventricular block, first degree; E03.9 Hypothyroidism, unspecified; I12.9 Hypertensive chronic kidney disease with stage 1 through stage 4 chronic kidney disease, or unspecified chronic kidney disease; E11.22 Type 2 diabetes mellitus with diabetic chronic kidney disease; N18.31 Chronic kidney disease, stage 3a; E86.1 Hypovolemia; E87.70 Fluid overload, unspecified; E87.5 Hyperkalemia; Z79.4 Long term (current) use of insulin; Z79.899 Other long term (current) drug therapy; Z82.49 Family history of ischemic heart disease and other diseases of the circulatory system; Z87.442 Personal history of urinary calculi; Z87.891 Personal history of nicotine dependence
CPT/HCPCS: 88305; 88311; 36415; 71045; 71046; 80048; 80053; 81003; 81015; 82248; 82330; 82565; 82805; 82810; 82947; 82962; 83036; 83735; 84132; 84302; 84520; 85014; 85018; 85025; 85027; 85049; 85610; 85730; 86850; 86900; 86901; 86920; 87070; 93005; 93312; 93320; 93325; 93880; 94002; P9045

== ENCOUNTER 2024-07-28 17:41 | Outpatient (RCR) | payer OTHER, SELFPAY ==
[2024-07-19 14:18] LABS: Glucose - Point of Care 189 mg/dl (70-99)
[2024-07-19 15:19] LABS: Glucose - Point of Care 117 mg/dl (70-99)
[2024-07-21 17:31] LABS: Glucose - Point of Care 195 mg/dl (70-99)
[2024-07-21 18:30] LABS: Glucose - Point of Care 174 mg/dl (70-99)
[2024-07-26 17:31] LABS: Glucose - Point of Care 228 mg/dl (70-99)
[2024-07-26 18:29] LABS: Glucose - Point of Care 262 mg/dl (70-99)
[2024-07-28 17:36] LABS: Glucose - Point of Care 104 mg/dl (70-99)
[2024-07-28 18:27] LABS: Glucose - Point of Care 88 mg/dl (70-99)
[2024-07-28 18:45] LABS: Glucose - Point of Care 89 mg/dl (70-99)
== END 2024-07-28 23:59 | disposition home or self-care (01) ==
LOC: CRHB 17:41
PROVIDERS: ATTENDING PHYSICIAN Internal Medicine; FAMILY PHYSICIAN Family Medicine
DX: Z95.2 Presence of prosthetic heart valve (principal)
CPT/HCPCS: 82962; 93798

== ENCOUNTER 2024-08-16 09:00 | Outpatient (RCR) | payer OTHER, SELFPAY | END 2024-08-16 23:59 | disposition home or self-care (01) | LOC: CRHB 09:00 | PROVIDERS: ATTENDING PHYSICIAN Internal Medicine; FAMILY PHYSICIAN Family Medicine | DX: Z95.2 Presence of prosthetic heart valve (principal) | CPT/HCPCS: 93797; 93798 ==

== ENCOUNTER → 2024-09-21 14:51 | Outpatient (REF) | payer OTHER, SELFPAY | LOC: RCS 14:51 | PROVIDERS: ATTENDING PHYSICIAN Internal Medicine; FAMILY PHYSICIAN Family Medicine | DX: Z95.2 Presence of prosthetic heart valve (principal); I10 Essential (primary) hypertension | CPT/HCPCS: 93306 ==

== ENCOUNTER → 2024-12-09 13:13 | Outpatient (REF) | payer OTHER, SELFPAY | LOC: DHSLP 13:13 | PROVIDERS: ATTENDING PHYSICIAN Family Medicine | DX: G47.33 Obstructive sleep apnea (adult) (pediatric) (principal) | CPT/HCPCS: 95800 ==